=== PATIENT | male | born 1950 | race Caucasian/White ===

== ENCOUNTER 2025-01-21 09:42 | Outpatient (AMB) | payer MEDICARE, SELFPAY ==
--- OUTSIDE RECORDS SUMMARY | 2024-10-12 11:37 | XMS_ITS ---
Author Organization [facility] Address [facility] [place], [place] [address] Care Team Providers Care Tablet Tester Name Role Phone MANOJ DRISCOLL Primary Care Provider REASON FOR VISIT Simvastatin Encounters Encounter Location Date Provider Diagnosis [facility] [address] [place] [address] 10/12/2024 MANOJ DRISCOLL PLAN OF TREATMENT No Information
--- OUTSIDE RECORDS SUMMARY | 2024-10-15 04:00 | XMS_ITS ---
Author Organization [facility] Address [address] [place], [place] [phone] Care Team Providers Care Produce Field Merchandiser Name Role Phone AMERICO MANOJ Primary Care [...] 10/15/2024 Encounters Encounter Location Date Provider Diagnosis [facility] [address] [place] [address] 10/15/2024 MANOJ AMERICO Impaired fasting glucose R73.01 [...] neuralgia (ICD-10 - G50.0) He goes to [facility], new provider each time. Oxcarbazine [...] 2 meds. Trigeminal neuralgia He goes to [facility], new provider each time. Oxcarbazine [...]
--- OUTSIDE RECORDS SUMMARY | 2024-10-15 05:00 | XMS_ITS ---
Author Organization [facility] Address [facility] [place], [place] [id number] Care Team Providers Care Electron Gun Inspector Name Role Phone MANOJ DRISCOLL Primary Care Provider [phone] REASON FOR VISIT 40/ 6 months Encounters Encounter Location Date Provider Diagnosis [facility] [address] [place] [address] 10/15/2024 MANOJ DRISCOLL PLAN OF TREATMENT No Information
--- OUTSIDE RECORDS SUMMARY | 2024-12-10 10:50 | XMS_ITS ---
Author Organization [facility] Address [facility] [place], [place] [id number] Care Team Providers Care Bookie Name Role Phone MANOJ DRISCOLL Primary Care Provider Encounters Encounter Location Date Provider Diagnosis [facility] [address] [place] [address] 12/10/2024 MANOJ DRISCOLL PLAN OF TREATMENT No Information
--- OUTSIDE RECORDS SUMMARY | 2024-12-11 05:15 | XMS_ITS ---
Author Organization [facility] Address [address] [place], [place] [id number] Care Team Providers Care Book Author Name Role Phone MANOJ DRISCOLL Primary Care Provider REASON FOR VISIT Olmesartan rx MEDICATIONS Medication SIG (Take, Route, Frequency, Duration) Notes Start Date End Date Status Olmesartan Medoxomil 40 MG as directed O rally daily for 90 days Active Encounters Encounter Location Date Provider Diagnosis [facility] [address] [place] [address] 12/11/2024 MANOJ DRISCOLL Essential (primary) hypertension I10 ASSESSMENTS Encounter Date Diagnosis Assessment Notes Treatment Notes Treatment Clinical Notes Section Notes 12/11/2024 Essential (primary) hypertension (ICD-10 - I10) PLAN OF TREATMENT Medication Medication Name Sig Start Date Stop Date Notes Olmesartan Medoxomil 40 MG as directed O rally daily for 90 days
--- NOTE | 2025-01-21 09:45 | MHC.PC.OV ---
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 Allergies Seasonal Allergies Allergy (Verified 01/21/25 10:13) Runny Nose Medication List - Last Reconciled 01/21/25 by Martín Tidwell MD aspirin (Adult Aspirin Regimen) 81 mg PO DAILY chlorthalidone 25 mg PO DAILY fluticasone propionate 50 mcg/actuation (Allergy Relief (fluticasone)) 1 spray intranasal DAILY PRN gabapentin 300 mg PO BID latanoprost 0.005% 1 drp ophthalmic (eye) QPM olmesartan 40 mg PO DAILY oxcarbazepine 600 mg PO BID oxcarbazepine 300 mg PO DAILY phenytoin sodium extended (Dilantin) PO TID phenytoin sodium extended 100 mg PO TID simvastatin 40 mg PO BEDTIME Tobacco use date assessed: 01/21/25 Fall risk assessment: No Falls in past year (Neuropathy of his feet) Last assessed Fall Risk: 01/21/25 Dental Screening Dental Screen Date: 01/21/25 Did you have a dental visit in the last 12 months?: Yes Did you have a dental problem in the last 6 months where you did not have access to dental care?: No Was dental information given to patient?: Patient has dentist HPI 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 ?? Prior PCP:Sola Last office visit/CPE:?3 mos Acute issue(s):? Neuropathy & Falls bilateral hand soreness & weakness ?? PMHx:?HTN, Trigeminal Neuralgia Dr. Wyman, HLD, SurgHx:? None FHx:? Mom: Aneurysm SocHx: Nonsmoker, EtOH 1 drink a month. [facility] Medical History (Updated 01/21/25 @ 11:00 by Paulino Thompson) Trigeminal neuralgia Neuropathy Hyperlipidemia Hypertension Sinusitis Family History (Updated 01/21/25 @ 10:21 by Yesenia Weiss CMA) Father Congestive heart failure Social History (Updated 01/21/25 @ 10:21 by Yesenia Weiss CMA) Housing: House Alcohol intake: current Patient Tobacco Use Status: Never used Tobacco e-Cigarette/Vaping Use: Never Used Second Hand Smoke Exposure: No service: No Current occupational status: retired Current occupational exposures/hazards: No Cognitive needs: No Hearing needs: No Vision needs: No Questionnaire PHQ-9 Over the last 2 weeks, how often have you been bothered by any of the following problems? 1. Little interest or pleasure in doing things: not at all 2. Feeling down, depressed, or hopeless: not at all 3. Trouble falling or staying asleep, or sleeping too much: not at all 4. Feeling tired or having little energy: several days 5. Poor appetite or overeating: not at all 6. Feeling bad about yourself - or that you are a failure or have let yourself or your family down: not at all 7. Trouble concentrating on things, such as reading the newspaper or watching television: not at all 8. Moving or speaking so slowly that other people could have noticed. Or the opposite - being so fidgety or restless that you have been moving around a lot more than usual: not at all 9. Thoughts that you would be better off or of hurting yourself in some way: not at all Total score: 1 Depression Screening Interpretation: Negative Depression Screening Done: Yes 71405 - PHQ-9 Billing: Yes Source: Developed by Drs. Alvin Barr, Halley Bonds, Temo Evans and colleagues, with an educational cindy from [employer]. Thrive Questionnaire Date Thrive assessed: 01/21/25 I am a: Patient What is your living situation today?: I have a steady place to live Within the past 12 months, did the food you bought not last and you didn't have the money to get more?: Never true Within the past 12 months, did you worry whether your food would run out before you got money to buy more?: Never true Do you have trouble paying for medicines?: No Do you have trouble getting transportation to medical appointments?: No Do you have trouble paying your heating and electricity bill?: No Do you have trouble taking care of your child, family member or friend?: No Do you have trouble with day-to-day activities such as bathing, preparing meals, shopping, managing finances, etc.?: No Are you currently unemployed and looking for a job?: No Are you interested in more education?: No Please select the resources that you would like help with: None Currently or been in a relationship where the following occur: No concerns reported THRIVE Score: 0 AUDIT C Alcohol Use Questionnaire (AUDIT-C) 1. How often do you have a drink containing alcohol?: 2-4 times a month 2. How many drinks containing alcohol do you have on a typical day when you are drinking?: 1 or 2 3. How often do you have six or more drinks on one occasion?: Never Total Score: 2 MANSOOR-7 AMB Questionnaire MANSOOR-7 Date MANSOOR - 7 assessed: 01/21/25 Feeling nervous, anxious, or on edge: 1 = Several days Not being able to stop or control worryin = Several days Worrying too much about different things: 0 = Not at all Trouble relaxin = Several days Being so restless that it is hard to sit still: 0 = Not at all Becoming easily annoyed or irritable: 0 = Not at all Feeling afraid as if something awful might happen: 0 = Not at all Total MANSOOR-7 score (0-4 normal; 5-9 mild; 10-14 moderate; 15-21 severe): 3 Source: Developed by Drs. Alvin Barr, Halley Bonds, Temo Evans and colleagues, with an educational cindy from [employer]. MANSOOR-7 Assessment Billing MANSOOR-7 Assessment Tool: MANSOOR-7 Assessment 02026 Review of Systems Const Denies chills, Denies fatigue, Denies fever(s), Denies headache(s) and Denies weakness ENT Denies dizziness and Denies headache(s) Card Denies chest pain, Denies lightheadedness, Denies dyspnea and Denies other (Palpitations) Resp Denies cough, Denies dyspnea, Denies wheezing and Denies other ( shortness of breath) Musc Denies numbness and Denies tingling Neuro Denies dizziness, Denies headache(s), Denies numbness, Denies tingling, Denies paresthesias and Denies weakness Psych Denies anxiety and Denies depression Endo Denies fatigue Aller/Immun Denies wheezing Physical exam (Primary Care) Vital Signs: Last Vital Signs Temp 97.9 F 01/21/25 10:21 Pulse 95 01/21/25 10:21 Resp 15 01/21/25 10:21 BP 112/60 01/21/25 10:21 Pulse Ox 98 01/21/25 10:21 Oxygen Delivery Method Room Air 01/21/25 10:21 BMI result Body Mass Index 28.9 Tobacco/Smoking Status: Tobacco use Status Tobacco use date assessed 01/21/25 01/21/25 10:20 Patient Tobacco Use Status Never used Tobacco 01/21/25 10:21 e-Cigarette/Vaping Use Never Used 01/21/25 10:21 PHQ-9: PHQ-9 Score PHQ-9: Total score 1 01/21/25 10:20 Depression Screening Interpretation: Negative Thrive Assessment: Date of Thrive Assessment Date Thrive assessed 01/21/25 01/21/25 09:50 Currently or been in a relationship where the following occur: No concerns reported Const General: no acute distress and well developed Nutritional Appearance: well nourished Orientation/consciousness: patient oriented x3 HENMT Head: Yes normocephalic and Yes atraumatic Eyes General: appearance normal, both eyes and all related structures Pupils: Equal, round and reactive pupils present EOM: EOMs intact bilaterally Resp Effort & Inspection: normal respiratory effort Auscultation: clear to auscultation bilaterally Cardio Rate: regular rate Rhythm: regular rhythm Heart sounds: S1 normal heart sound present, S2 normal heart sound present, no gallops, no murmurs and no rubs Neuro General: patient oriented x3 and gait normal Cranial nerves: Yes Equal, round and reactive pupils present Psych Affect: normal affect Coding Level of Care Code New Pt Level 4 (59919) Diagnoses Trigeminal neuralgia G50.0 Hypertension I10 Hyperlipidemia E78.5 Falls R29.6 Neuropathy G62.9 Bilateral hand pain M79.641; M79.642 Weakness of both hands R29.898 Facial tic F95.9 Insomnia G47.00 Laboratory exam ordered as part of routine general medical examination Z00.00 Additional Codes MANSOOR-7 Assessment Billing - MANSOOR-7 Assessment Tool: MANSOOR-7 Assessment 56850 ([id number]) PHQ-9 - 93563 - PHQ-9 Billing: Yes ([id number]) Assessment & Plan Assessment & Plan (1) Trigeminal neuralgia: Code(s): G50.0 - Trigeminal neuralgia Category: Medical Plan: Patient takes oxcarbazepine and phenytoin He feels that the medications are well and symptoms are controlled. He does have some insomnia however and oxcarbazepine and phenytoin can be contributing to this. He has Benadryl for this with good affect Can continue this or we can discuss other medications subsequently. (2) Hypertension: Code(s): I10 - Essential (primary) hypertension Category: Medical Plan: Blood pressure is well controlled on olmesartan in chlorthalidone Continue current medication regimen Check labs (3) Hyperlipidemia: Code(s): E78.5 - Hyperlipidemia, unspecified Category: Medical Plan: He is on simvastatin Check lipids (4) Falls: Code(s): R29.6 - Repeated falls Category: Medical Plan: Neuropathy bilateral feet and has had several falls. More recently he is following less as he is focusing using railings and avoiding falls. We discussed using a cane today. Evaluating neuropathy-see below (5) Neuropathy: Code(s): G62.9 - Polyneuropathy, unspecified Category: Medical Plan: Neuropathy bilateral feet with positive microfilament test and toe tips and forefoot bilaterally. Checking labs including inflammatory markers and B12. Also thyroid levels. Advised using a cane Follow-up with podiatry Follow-up with Neurology (6) Bilateral hand pain: Code(s): M79.641 - Pain in right hand; M79.642 - Pain in left hand Category: Medical Plan: Bilateral hand pain, weakness and mild deformities at pip joints Likely osteoarthritis Check x-rays Checking inflammatory markers and rheumatoid factor (7) Weakness of both hands: Code(s): R29.898 - Other symptoms and signs involving the musculoskeletal system Category: Medical Plan: As above (8) Facial tic: Code(s): F95.9 - Tic disorder, unspecified Category: Medical Plan: Mild facial tic He is on medications such as oxcarbazepine and phenytoin, however his daughter notes that he has they should take preceding medications. (9) Insomnia: Code(s): G47.00 - Insomnia, unspecified Category: Medical Plan: Difficulty sleeping and this may be secondary to oxcarbazepine and then until in which insomnia He uses Benadryl as discussed above (10) Laboratory exam ordered as part of routine general medical examination: Code(s): Z00.00 - Encounter for general adult medical examination without abnormal findings Category: Medical Plan: Check labs Orders: Orders Complete Blood Count Auto Diff Today Z00.00 - Encounter for general adult medical examination without abnormal findings Comprehensive [place]. Panel Fast Today Z00.00 - Encounter for general adult medical examination without abnormal findings Lipid Panel Today Z00.00 - Encounter for general adult medical examination without abnormal findings TSH reflex Free T4 Today Z00.00 - Encounter for general adult medical examination without abnormal findings UA CC w/rflx Micro + Cult Today Z00.00 - Encounter for general adult medical examination without abnormal findings Vitamin B12 and Folate Today E53.8 - Deficiency of other specified B group vitamins Vitamin D 25-OH Total Today E55.9 - Vitamin D deficiency, unspecified Syphilis Screen Today G62.9 - Polyneuropathy, unspecified, Z11.3 - Encounter for screening for infections with a predominantly sexual mode of transmission Rheumatoid Factor Today M79.641 - Pain in right hand, M79.642 - Pain in left hand CRP High Sensitivity Today M79.641 - Pain in right hand, M79.642 - Pain in left hand XR hand LT min 3V Today M79.641 - Pain in right hand, M79.642 - Pain in left hand Prostate Specific Antigen Scr Today Z12.5 - Encounter for screening for malignant neoplasm of prostate Microalbumin, Random (w Creat) Today I10 - Essential (primary) hypertension Phenytoin Dilantin Today G50.0 - Trigeminal neuralgia Lyme IgG/IgM w/reflex to WB Today G62.9 - Polyneuropathy, unspecified ERIK Reflex Titer and Pattern Today M79.641 - Pain in right hand, M79.642 - Pain in left hand Erythrocyte Sedimentation Rate Today M79.641 - Pain in right hand, M79.642 - Pain in left hand XR hand RT min 3V Today M79.641 - Pain in right hand, M79.642 - Pain in left hand
[2025-01-21 10:21] VITALS: BP 112/60; PULSE 95; RESP 15; TEMP 36.6; O2SAT 98; BMI 28.9
--- OUTSIDE RECORDS SUMMARY | 2025-01-21 10:36 | XMS_ITS | Patient Health Record ---
Author Organization [facility] Address [facility] [place], [place] [id number] Care Team Providers Care Competency Evaluated Nurse Aide Name Role Phone MANOJ DRISCOLL Primary Care Provider [phone] [facility] Unavailable [phone] ALLERGIES No Known Allergies REASON FOR REFERRAL No Information MEDICATIONS Medication SIG (Take, Route, Frequency, Duration) Notes Start Date End Date Status Olmesartan Medoxomil 40 MG TAKE 1 TABLET BY MOUTH EVERY DAY DIRECTED for 90 Active Sleep Aid ? 2 CAPS. QHS OTC Active Chlorthalidone 25 MG TAKE 1 TABLET DAILY IN THE MORNING WITH FOOD for 90 Active OXcarbazepine 300 MG 1 tab(s) orally in the p.m. Active OXcarbazepine 600 MG 1 tab in a.m. and 1 tab in the p.m. orally daily Active Simvastatin 40 MG TAKE 1 TABLET AT BED TIME Orally Once a day for 90 days Active Phenytoin Sodium Extended 100 MG 3 cap(s) orally once a day (at bedtime) Active Dilantin 30 MG 1 cap(s) orally 3 ti mes daily Active Gabapentin 300 MG 1 cap(s) orally 2 ti mes a day Active IMMUNIZATIONS Vaccine Route Administration Date Status Comme nts FLUAD Quadrivalent Unknown 03/31/2021 Administered Influenza, Fluzone HD 65+ IM Intramuscular 03/29/2023 Admi nistered Pfizer COVID-19,mRNA, LNP-S, PF, 30mcg/0.3mL dose Unknown 07/15/2020 Administered Pfizer COVID-19,mRNA, LNP-S, PF, 30mcg/0.3mL dose Unknown 08/05/2020 Administered Pfizer COVID-19,mRNA, LNP-S, PF, 30mcg/0.3mL dose Unknown 03/31/2021 Administered Pneumococcal, PPV 23 IM Intramuscular 04/14/2021 Administe red Tdap (Adacel)-64,State Supplied Unknown 09/06/2006 Administered SOCIAL HISTORY Tobacco Use: Social History Observation [...] W/U Status Risk SNOMED Code Notes Problem Hypercholesterolemia NOS (272.4) Active confirmed Hypercholestero lemia (60358027) Problem Depressive disorder NEC (311) Active confirmed Depressive diso rder (25330193) Problem Essential (primary) hypertension (I10) Active confirmed 94226468 Problem Mixed hyperlipidemia (E78.2) Active confirmed 816923417 Problem Trigeminal neuralgia (G50.0) Active confirmed Trigeminal neur algia (14796563) Problem Polyneuropathy (G62.9) Active confirmed 76699672 VITAL SIGNS Blood pressure diastolic 66 mm Hg 10/15/2024 Height 62 in 10/15/2024 Blood pressure systolic 116 mm Hg 10/15/2024 Weight 164.8 lbs 10/15/2024 BMI 30.14 kg/m2 10/15/2024 Encounters Encounter Location Date Provider Diagnosis [facility] [address] [place] [address] 04/12/2024 NURSING [facility] [address] [place] [address] 04/12/2024 MANOJ DRISCOLL Impaired fasting glucose R73.01 ; Mixed hyperlipidemia E78.2 ; Essential (primary) hypertension I10 ; Trigeminal neuralgia G50.0 ; Encounter for general adult medical examination without abnormal findings Z00.00 and Polyneuropathy G62.9 [facility] [address] [facility] [place] [address] 09/05/2024 MANOJLETICIA CAMPOVERDENICOLAS [facility] [address] [place] [address], [place] [address] 10/12/2024 MANOJLETICIA CAMPOVERDENICOLAS [facility] [address] [place] [address], [place] [address] 10/15/2024 MANOJ DRISCOLL Impaired fasting glucose R73.01 ; Mixed hyperlipidemia E78.2 ; Essential (primary) hypertension I10 ; Trigeminal neuralgia G50.0 and Polyneuropathy G62.9 [facility] [address] [place] [address], [place] [address] 10/15/2024 MANOJLETICIA DRISCOLL [address] [place] [address] 12/10/2024 MANOJLETICIA FERNANDEZLIOR [address] [place] [address] 12/11/2024 MANOJ DRISCOLL Essential (primary) hypertension I10 ASSESSMENTS Encounter Date Diagnosis Assessment Notes Treatment Notes Treatment Clinical Notes Section Notes 12/11/2024 Essential (primary) hypertension (ICD-10 - I10) 10/15/2024 Impaired fasting glucose (ICD-10 - R73.01) His last hemoglobin A1c was stable at 6.2. He will go for repeat soon. 04/12/2024 Impaired fasting glucose (ICD-10 - R73.01) His hemoglobin A1c is stable at 6.2. This may have been an needed by his 10 pound weight loss which may have resulted from his exacerbation of trigeminal neuralgia. However, that is now gone and he will need to maintain his weight loss on his own. 10/15/2024 Mixed hyperlipidemia (ICD-10 - E78.2) He remains on simvastatin. He did not do his labs for today but will go soon. No xu;gias 10/15/2024 Essential (primary) hypertension (ICD-10 - I10) BP is good today. Continue same 2 meds. 04/12/2024 Mixed hyperlipidemia (ICD-10 - E78.2) LDL [...] Recent exacerbation in January. He goes to [facility], new provider each time. Oxcarbazine makes him imbalanced. He has fallen several times They are adjusting his dose (now 600mg AM + 900mg PM). Severe pain after eating or brushing teeth. Has been intermittent for >10 years. 10/15/2024 Trigeminal neuralgia (ICD-10 - G50.0) He goes to [facility], new provider each time. Oxcarbazine makes him imbalanced. No pain in months. Has been intermittent for >10 years. 04/12/2024 Encounter for general adult medical examination without abnormal findings (ICD-10 - Z00.00) 10/15/2024 Polyneuropathy (ICD-10 - G62.9) He had loss of sensation in his feet, many years. It is better now. No history of significant alcohol use. No obvious etiology. 04/12/2024 Polyneuropathy (ICD-10 - G62.9) He has loss of sensation in his feet, many years. He will discuss with his neurologist at the next appointment. B12, TSH were normal. No history of significant alcohol use. No obvious etiology. 04/12/2024 Other All HRA questions answered. Emphasized benefit of regular aerobic exercise/healthy diet. *See [facility]/preventive medicine Health Risk Assessment reviewed with patient [...] was published to portal. PLAN OF TREATMENT Future Test Test Name Order Date LIPID PROFILE 04/09/2021 LIPID PANEL 05/10/2023 TSH WITH REFLEX TO FT4 (ADULTS ONLY) CBC (COMPLETE BLOOD COUNT) WITH DIFF COMPREHENSIVE METABOLIC PANEL 05/10/2023 HEMOGLOBIN A1C 05/10/2023 VITAMIN B12 05/10/2023 IRON AND TIBC 05/11/2023 URIC ACID 05/11/2023 CBC With Differential/Platelet-[id number] Hgb A1c with eAG Estimation-[id number] 10/11 LP+Non-HDL Cholesterol-338401 10/11/2024 Comp. Metabolic Panel [id number] 2024 Insurance Providers Payer Name Payer Address Payer Phone Subscriber Number Group Number Insured Name Patient Relationship to Insured Coverage Start Date Coverage End Date [employer]IC[employer] [address] [place] [address] [id number] ANIRUDH BETANCOURT Self - patient is the insured 1 MEDICAL (GENERAL) HISTORY Medical History History ICD Code Insomnia trigeminal neuralgia hyperlipidemia pre-diabetes [facility]- Sheryl Betancourt () Surgical History Surgery Date(Month/Year) None
== END 2025-01-21 11:00 | disposition home or self-care (01) ==
PROVIDERS: PCP Family Medicine; Visit Provider Family Medicine
DX: G50.0 Trigeminal neuralgia (principal); I10 Essential (primary) hypertension; E78.5 Hyperlipidemia, unspecified; R29.6 Repeated falls; G62.9 Polyneuropathy, unspecified; M79.641 Pain in right hand; M79.642 Pain in left hand; R29.898 Other symptoms and signs involving the musculoskeletal system; F95.9 Tic disorder, unspecified; G47.00 Insomnia, unspecified; Z00.00 Encounter for general adult medical examination without abnormal findings

== ENCOUNTER → 2025-01-21 09:42 | Outpatient (BNVA) | payer MEDICARE, SELFPAY | PROVIDERS: PCP Family Medicine; Visit Provider Family Medicine | DX: Z00.00 Encounter for general adult medical examination without abnormal findings (principal); M79.642 Pain in left hand; M79.641 Pain in right hand; G62.9 Polyneuropathy, unspecified; I10 Essential (primary) hypertension; E78.5 Hyperlipidemia, unspecified; R29.6 Repeated falls; R29.898 Other symptoms and signs involving the musculoskeletal system; F95.9 Tic disorder, unspecified; G47.00 Insomnia, unspecified | CPT/HCPCS: 96127; 99202 ==

== ENCOUNTER 2025-02-01 08:06 | Outpatient (REF) | payer MEDICARE, SELFPAY ==
--- NOTE | ~2025-02-01 | XR_ITS ---
EXAMINATION: X-ray bilateral hands CLINICAL INFORMATION: Pain COMPARISON: None TECHNIQUE: Right hand 3 views. Left hand 3 views. FINDINGS: [Left hand : Osseous mineralization is decreased. No fracture, dislocation or suspicious bony lesion.. Moderate first CMC arthritis. Mild third DIP, second PIP joint arthritis.. No osseous erosion. No abnormal soft tissue calcification. Right hand: Osseous mineralization is decreased. No fracture, dislocation or suspicious osseous lesion.. Severe first CMC arthritis. Joint space loss of the second MCP, third DIP joint.. No osseous erosion. No abnormal soft tissue calcification. XR/XR Hand Bilat min 3v IMPRESSION: Left hand: Arthritis as above. Moderate first CMC arthritis. Right hand: Arthritis as above. Severe first CMC arthritis. Electronically signed by: Edmundo Lopez MD 02/01/2025 09:05 AM EDT
[2025-02-01 11:06] LABS: MANUAL DIFF FLAG NO
[2025-02-01 11:15] LABS: Hematocrit 41.1 % (42.0-52.0); Hemoglobin 14.2 g/dl (14.0-18.0); Imm Gran Abs Auto 0.01 X10*3/uL (0.00-0.03); Imm Gran Pct Auto 0.2 % (0.0-0.4); Lymphocytes Absolute Auto 1.2 X10*3/uL (1.2-4.9); Mean Corpuscular HGB Conc 34.5 g/dl (31.0-36.0); Mean Corpuscular Hemoglobin 29.7 pg (27.0-33.0); Mean Corpuscular Volume 86.0 fL (80.0-98.0); NRBC Abs Auto 0.000 X10*3/uL (0.0-0.012); NRBC Pct Auto 0.0 /100WBC (0.0-0.2); Platelet Count 266 X10*3/uL (160-400); Red Blood Count 4.78 X10*6/uL (4.60-5.80); White Blood Count 5.9 X10*3/uL (4.8-10.8)
[2025-02-01 11:18] LABS: Appearance Urine Clear; Glucose Urine UA Negative (Negative); PH 7.5 (5.0-9.0); Specific Gravity - Urine 1.020 (1.005-1.025); UMIC TRIGGER UACC YES
[2025-02-01 11:46] LABS: Alanine Aminotransferase 30 U/L (0-40); Albumin Level 4.4 g/dL (3.5-5.0); Alkaline Phosphatase 89 U/L (39-117); Anion Gap 11 (12-20); Aspartate Amino Transferase 33 U/L (5-37); Blood Urea Nitrogen 13 mg/dL (9-16); Calcium 8.8 mg/dL (8.4-10.2); Carbon Dioxide 26 mmol/L (22-29); Chloride 95 mmol/L (96-108); Cholesterol 154 mg/dL (<200); Estimated Glomerular Filt Rate > 60; HDL Cholesterol 56 mg/dL (>40); Potassium 3.7 mmol/L (3.3-5.1); Sodium 128 mmol/L (135-145); Total Protein 6.6 g/dL (6.5-8.0); Triglycerides 77 mg/dL (<150)
[2025-02-01 11:50] LABS: Microalbum/Creatinine Ratio Ur 8.0 ug/mg cr (<30)
[2025-02-01 12:22] LABS: Folate 7.4 ng/mL (> or = 4.0); Vitamin B12 587 pg/mL (200-900)
[2025-02-01 12:23] LABS: Syphilis Screen Nonreactive (Nonreactive)
[2025-02-02 10:38] LABS: Lyme Abs Screen <0.90 index
[2025-02-15 13:08] LABS: Anti Nuclear Antibody Pattern Nuclear, Nucleolar; Anti Nuclear Antibody Screen POSITIVE (NEGATIVE); Anti Nuclear Antibody Titer 1:80 titer
== END 2025-02-01 08:07 | disposition home or self-care (01) ==
LOC: HO.WFDLDS 08:06
PROVIDERS: PCP Family Medicine; Visit Provider Family Medicine
DX: Z00.00 Encounter for general adult medical examination without abnormal findings (principal); E55.9 Vitamin D deficiency, unspecified; M79.641 Pain in right hand; M79.642 Pain in left hand; I10 Essential (primary) hypertension; G50.0 Trigeminal neuralgia; E53.8 Deficiency of other specified B group vitamins; G62.9 Polyneuropathy, unspecified; Z12.5 Encounter for screening for malignant neoplasm of prostate; Z01.84 Encounter for antibody response examination
CPT/HCPCS: 36415; 73130; 80053; 80061; 80185; 81001; 82043; 82306; 82570; 82607; 82746; 84153; 84443; 85025; 85652; 86038; 86039; 86141; 86431; 86617; 86618; 86780

== ENCOUNTER → 2025-02-01 08:47 | Outpatient (BNV) | payer MEDICARE, SELFPAY | PROVIDERS: PCP Family Medicine; Visit Provider Radiology Diagnostic Ultrasound | DX: M18.0 Bilateral primary osteoarthritis of first carpometacarpal joints (principal) | CPT/HCPCS: 73130 ==

== ENCOUNTER 2025-02-25 09:16 | Outpatient (AMB) | payer MEDICARE, SELFPAY ==
--- OUTSIDE RECORDS SUMMARY | 2023-09-22 03:00 | XMS_ITS ---
Author Organization [facility] Address [address], [place] [id number] Care Team Providers Care Nematology Teacher Name Role Phone AMERICO MANOJ Primary Care Provider ALLERGIES No Known Allergies REASON FOR VISIT 2 mo f/u, pt needs refills on Olmesartan [facility] MEDICATIONS Medication SIG (Take, Route, Frequency, Duration) Notes Start Date End Date Status Simvastatin 40 MG tab orally at bedtime Active OXcarbazepine 600 MG 2 tab(s) orally daily Active OXcarbazepine 300 MG 3 tab(s) orally in the a.m. Active Olmesartan Medoxomil 40 MG as directed O rally daily for 90 days Active Chlorthalidone 25 MG 1 tab Orally in the morning with food Active Sleep Aid ? 2 CAPS. QHS OTC Active Phenytoin Sodium Extended 100 MG 3 cap(s) orally once a day (at bedtime) Active Gabapentin 300 MG 1 cap(s) orally 2 ti mes a day Active Dilantin 30 MG 1 cap(s) orally 3 ti mes daily Active SOCIAL HISTORY Tobacco Use: Social History Observation Description Date Details (start date - stop date) Never Smoker NA - NA Sex Assigned At : Social History Observation Description Sex Assigned At Unknown Smoking Question Answer Notes Are you a: never smoker VITAL SIGNS Height 62 in 09/22/2023 Weight 167.2 lbs 09/22/2023 Blood pressure systolic 132 mm Hg 09/22/19 24 Blood pressure diastolic 74 mm Hg 024 BMI 30.58 kg/m2 09/22/2023 Encounters Encounter Location Date Provider Diagnosis [facility] [address] [place] [address] 09/22/2023 MANOJ DRISCOLL Mixed hyperlipidemia E78.2 ; Impaired fasting glucose R73.01 ; Essential (primary) hypertension I10 and Trigeminal neuralgia G50.0 ASSESSMENTS Encounter Date Diagnosis Assessment Notes Treatment Notes Treatment Clinical Notes Section Notes 09/22/2023 Mixed hyperlipidemia (ICD-10 - E78.2) 09/22/2023 Impaired fasting glucose (ICD-10 - R73.01) Hemoglobin A1c generally runs 5.9-6. It is now up to 6.2. Discussed exercise, weight loss, avoiding simple carbs. 09/22/2023 Essential (primary) hypertension (ICD-10 - I10) OK. Home monitoring encouraged. refilled olmesartan. Serum sodium is 130. Discussed avoiding excessive water intake. Likely chlorthalidone is playing a role. Will continue to monitor. He will go to recheck that in 3 months. Lab orders transmitted. 09/22/2023 Trigeminal neuralgia (ICD-10 - G50.0) well controlled with meds now. He goes to [facility], new provider each time PLAN OF TREATMENT Medication Medication Name Sig Start Date Stop Date Notes Olmesartan Medoxomil 40 MG as directed O rally daily for 90 days Treatment Notes Assessment Notes Impaired fasting glucose Hemoglobin A1c generally runs 5.9-6. It is now up to 6.2. Discussed exercise, weight loss, avoiding simple carbs. Essential (primary) hypertension OK. Home monitoring encouraged. refilled olmesartan. Serum sodium is 130. Discussed avoiding excessive water intake. Likely chlorthalidone is playing a role. Will continue to monitor. He will go to recheck that in 3 months. Lab orders transmitted. Trigeminal neuralgia well controlled wit h meds now. He goes to [facility], new provider each time Next Appt Details Follow Up: OV+AWV after 03/29 ., Reason: Progress Notes * Examination Category Sub-Category Detail Notes Category Not es General Examination HEENT: EOMI bilaterally, PER RLA Neck: no lymphadenopathy, no thyromegaly, no carotid bruit, JVP flat Heart: RRR, no murmur, , no rmal S1S2 Lungs: clear to auscultatio n Extremities: normal ROM, no clubb ing , cyanosis, or edema. No objective findings on left thumb (he describes hand weakness there) Skin: normal, no rash, aidan ign appearing moles Neuro alert and oriented x 3, gait normal. Oral cavity: no lesions Back: normal ROM of spine, no evidence of scoliosis Lymphatics No supraclavicular n odes, No nodes in neck
--- OUTSIDE RECORDS SUMMARY | 2023-12-23 08:47 | XMS_ITS ---
Author Organization [facility] Address [address] [place], [place] [id number] Care Team Providers Care Contour Grinder Name Role Phone MANOJ DRISCOLL Primary Care Provider [phone] REASON FOR VISIT fax last AWV/CPX and last office notes Encounters Encounter Location Date Provider Diagnosis [facility] [address] [place] [address] 12/23/2023 MANOJ DRISCOLL PLAN OF TREATMENT No Information
--- OUTSIDE RECORDS SUMMARY | 2024-04-12 05:00 | XMS_ITS ---
Author Organization [facility] Address [address] [place], [place] [phone] Care Team Providers Care Automatic Lehr Operator Name Role Phone MANOJ DRISCOLL Primary Care Provider [phone] RADHA PRIETO [facility] [phone] REASON FOR VISIT 40/awv Encounters Encounter Location Date Provider Diagnosis [facility] [address] [place] [address] 04/12/2024 NURSING [facility] PLAN OF TREATMENT No Information
--- OUTSIDE RECORDS SUMMARY | 2024-04-12 05:30 | XMS_ITS ---
Author Organization [facility] Address [address], [place] [id number] Care Team Providers Care Trucking Supervisor Name Role Phone AMERICO MANOJ Primary Care Provider [phone] ALLERGIES No Known Allergies REASON FOR VISIT [...] Trigeminal neuralgia (G50.0) Active confirmed Trigeminal neuralgia (60513444) Problem Polyneuropathy (G62.9) Active confirmed [id number] VITAL SIGNS Height 62 in 04/12/2024 Weight 161.2 lbs 04/12/2024 Blood pressure systolic 128 mm Hg 04/12/20 24 Blood pressure diastolic 66 mm Hg 024 BMI 29.48 kg/m2 04/12/2024 Encounters Encounter Location Date Provider Diagnosis [facility] [address] [place] [address] 04/12/2024 MANOJ DRISCOLL Impaired fasting glucose R73.01 [...] Recent exacerbation in January. He goes to [facility], new provider each time. Oxcarbazine [...] generalized fatigue. 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 He gets cramps in his calves occasionally [...] Recent exacerbation in January. He goes to [facility], new provider each time. Oxcarbazine [...] Test Test Name Order Date CBC With Differential/Platelet-[id number] Hgb A1c with eAG Estimation-[id number] 10/11 LP+Non-HDL Cholesterol-[id number] 10/11/2024 Comp. Metabolic Panel [id number] 2024 Next Appt Details Follow Up: 6 Months. print r ex. Flu+[id number] today, Reason: Progress Notes * Examination Category [...]
--- OUTSIDE RECORDS SUMMARY | 2024-09-05 03:50 | XMS_ITS ---
Author Organization [facility] Address [address] [place], [place] [address] Care Team Providers Care Galvanizer Name Role Phone MANOJ DRISCOLL Primary Care Provider [phone] REASON FOR VISIT MedRecReqTsf Encounters Encounter Location Date Provider Diagnosis [facility] [address] [place] [address] 09/05/2024 MANOJ DRISCOLL PLAN OF TREATMENT No Information
--- OUTSIDE RECORDS SUMMARY | 2024-10-12 10:37 | XMS_ITS ---
Author Organization [facility] Address [address] [place], [place] [id number] Care Team Providers Care Clinical Marketing Manager Name Role Phone MANOJ DRISCOLL Primary Care Provider [phone] REASON FOR VISIT Simvastatin Encounters Encounter Location Date Provider Diagnosis [facility] [address] [place] [address] 10/12/2024 MANOJ DRISCOLL PLAN OF TREATMENT No Information
--- OUTSIDE RECORDS SUMMARY | 2024-10-15 03:00 | XMS_ITS ---
Author Organization [facility] Address [address] [place], [place] [id number] Care Team Providers Care Head Tennis Coach Name Role Phone AMERICO MANOJ Primary Care Provider ALLERGIES No Known Allergies REASON FOR VISIT Medication Refill MEDICATIONS Medication SIG (Take, Route, Frequency, Duration) Notes Start Date End Date Status Olmesartan Medoxomil 40 MG TAKE 1 TABLET BY MOUTH EVERY DAY DIRECTED. for 90 Active Chlorthalidone 25 MG TAKE 1 TABLET DAILY IN THE MORNING WITH FOOD 90 for 90 Active Sleep Aid ? 2 CAPS. QHS OTC Active Olmesartan Medoxomil 40 MG as directed O rally daily for 90 days Active Phenytoin Sodium Extended 100 MG 3 cap(s) orally once a day (at bedtime) Active OXcarbazepine 300 MG 1 tab(s) orally in the p.m. Active OXcarbazepine 600 MG 1 tab in a.m. and 1 tab in the p.m. orally daily Active Simvastatin 40 MG TAKE 1 TABLET AT BED TIME Orally Once a day for 90 days Active Dilantin 30 MG 1 cap(s) orally 3 ti mes daily Active Gabapentin 300 MG 1 cap(s) orally 2 ti mes a day Active SOCIAL HISTORY Tobacco Use: Social History [...] Never (0 points) Points 1 Interpretation Negative VITAL SIGNS Height 62 in 10/15/2024 Weight 164.8 lbs 10/15/2024 Blood pressure systolic 116 mm Hg 10/16/19 25 Blood pressure diastolic 66 mm Hg 025 BMI 30.14 kg/m2 10/15/2024 Encounters Encounter Location Date Provider Diagnosis [facility] [address] [place] [address] 10/15/2024 MANOJ AMERICO Impaired fasting glucose R73.01 ; Mixed hyperlipidemia E78.2 ; Essential (primary) hypertension I10 ; Trigeminal neuralgia G50.0 and Polyneuropathy G62.9 ASSESSMENTS Encounter Date Diagnosis Assessment Notes Treatment Notes Treatment Clinical Notes Section Notes 10/15/2024 Impaired fasting glucose (ICD-10 - R73.01) His last hemoglobin A1c was stable at 6.2. He will go for repeat soon. 10/15/2024 Mixed hyperlipidemia (ICD-10 - E78.2) He remains on simvastatin. He did not do his labs for today but will go soon. No xu;gias 10/15/2024 Essential (primary) hypertension (ICD-10 - I10) BP is good today. Continue same 2 meds. 10/15/2024 Trigeminal neuralgia (ICD-10 - G50.0) He goes to [facility], new provider each time. Oxcarbazine makes him imbalanced. No pain in months. Has been intermittent for >10 years. 10/15/2024 Polyneuropathy (ICD-10 - G62.9) He had loss of sensation in his feet, many years. It is better now. No history of significant alcohol use. No obvious etiology. PLAN OF TREATMENT Medication Medication Name Sig Start Date Stop Date Notes Olmesartan Medoxomil 40 MG as directed O rally daily for 90 days Simvastatin 40 MG TAKE 1 TABLET AT BED TIME Orally Once a day for 90 days Treatment Notes Assessment Notes Impaired fasting glucose His last hemogl obin A1c was stable at 6.2. He will go for repeat soon. Mixed hyperlipidemia He remains on simva statin. He did not do his labs for today but will go soon. No xu;gias Essential (primary) hypertension BP is g ood today. Continue same 2 meds. Trigeminal neuralgia He goes to [facility], new provider each time. Oxcarbazine makes him imbalanced. No pain in months. Has been intermittent for >10 years. Polyneuropathy He had loss of sensa tion in his feet, many years. It is better now. No history of significant alcohol use. No obvious etiology. Next Appt Details Follow Up: 6 Months OV+AWV, Reason: Progress Notes * Examination Category Sub-Category [...]
--- OUTSIDE RECORDS SUMMARY | 2024-10-15 04:00 | XMS_ITS ---
Author Organization [facility] Address [address] [place], [place] [phone] Care Team Providers Care Java J2Ee Architect Name Role Phone MANOJ DRISCOLL Primary Care Provider [phone] REASON FOR VISIT 40/ 6 months Encounters Encounter Location Date Provider Diagnosis [facility] [address] [place] [address] 10/15/2024 MANOJ DRISCOLL PLAN OF TREATMENT No Information
--- OUTSIDE RECORDS SUMMARY | 2024-12-10 09:50 | XMS_ITS ---
Author Organization [facility] Address [address] [place], [place] [id number] Care Team Providers Care Production Internship Name Role Phone MANOJ DRISCOLL Primary Care Provider Encounters Encounter Location Date Provider Diagnosis [facility] [address] [facility] [place] [address] 12/10/2024 MANOJ DRISCOLL PLAN OF TREATMENT No Information
--- OUTSIDE RECORDS SUMMARY | 2024-12-11 04:15 | XMS_ITS ---
Author Organization [facility] Address [address] [place], [place] [id number] Care Team Providers Care Gizzard Skin Remover Name Role Phone MANOJ DRISCOLL Primary Care Provider REASON FOR VISIT Olmesartan rx MEDICATIONS Medication SIG (Take, Route, Frequency, Duration) Notes Start Date End Date Status Olmesartan Medoxomil 40 MG as directed O rally daily for 90 days Active Encounters Encounter Location Date Provider Diagnosis [facility] [address] [place] [address] 12/11/2024 MANOJ DRISCOLL Essential (primary) hypertension I10 ASSESSMENTS Encounter Date Diagnosis Assessment Notes Treatment Notes Treatment Clinical Notes Section Notes 12/11/2024 Essential (primary) hypertension (ICD-10 - I10) PLAN OF TREATMENT Medication Medication Name Sig Start Date Stop Date Notes Olmesartan Medoxomil 40 MG as directed O rally daily for 90 days
--- NOTE | 2025-02-25 09:30 | A.OFFPC_ITS ---
Vital Signs 02/25/25 09:33 Height 5 ft 3 in Weight 160 lb 6 oz BMI 28.4 BP 110/60 Blood Pressure Location Rt brachial Position Sitting Respiration 16 Pulse 73 Pulse Source Pulse Oximeter Temp 98.2 F Temp Source Oral Pulse Oximetry (%) 96 Oxygen Delivery Method Room Air Intake Visit Reasons: Labs, Bi-Lat Hand and Neuropathy Intake Note: patient is scheduled to review labs and discuss x-ray results along with neuropathy labs have been completed and x-ray is resulted. 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 Required: No Allergies Seasonal Allergies Allergy (Verified 02/25/25 09:32) Runny Nose Medication List - Last Reconciled 02/25/25 by Martín Tidwell MD aspirin (Adult Aspirin Regimen) 81 mg PO DAILY chlorthalidone 25 mg PO DAILY fluticasone propionate 50 mcg/actuation (Allergy Relief (fluticasone)) 1 spray intranasal DAILY PRN gabapentin 300 mg PO BID latanoprost 0.005% 1 drp ophthalmic (eye) QPM olmesartan 40 mg PO DAILY oxcarbazepine 600 mg PO BID oxcarbazepine 300 mg PO DAILY phenytoin sodium extended (Dilantin) PO TID phenytoin sodium extended 100 mg PO TID simvastatin 40 mg PO BEDTIME Tobacco use date assessed: 01/21/25 Dental Screening Dental Screen Date: 01/21/25 HPI Labs, Bi-Lat Hand and Neuropathy HPI Details 74 y/o male presents to f/u bilateral [place] pain, neuropathy, labs. Labs drawn 02/01/25. Reviewed labs with pt. Sodium level 128 mmol/L. Elevated fasting glucose of 127. Triglycerides 77. TC 154. LDL 83. He is on simvastatin 40mg. Ongoing bilateral hand pain. Reports bilateral hamstring discomfort. A1c today 5.9%. HPI Comments History of Present Illness Details Documentation assistance for Martín Tidwell MD, was provided by Paulino Thompson,? It Systems Administrator on 02/25/2025 at 10:06 AM GIUSEPPE. Braxton, Dr. Tidwell, have read, observed, and verified documentation. ?? [facility] Medical History (Updated 02/25/25 @ 10:06 by Paulino Thompson) Trigeminal neuralgia Neuropathy Hyperlipidemia Hypertension Sinusitis Family History (Updated 01/21/25 @ 10:21 by Yesenia Weiss [facility]) Father Congestive heart failure Social History (Updated 01/21/25 @ 10:21 by Yesenia Weiss CMA) Housing: House Alcohol intake: current Patient Tobacco Use Status: Never used Tobacco e-Cigarette/Vaping Use: Never Used Second Hand Smoke Exposure: No service: No Current occupational status: retired Current occupational exposures/hazards: No Cognitive needs: No Hearing needs: No Vision needs: No Questionnaire Thrive Questionnaire Date Thrive assessed: 01/21/25 MANSOOR-7 AMB Questionnaire MANSOOR-7 Date MANSOOR - 7 assessed: 01/21/25 Source: Developed by Drs. Alvin Barr, Halley Bonds, Temo Evans and colleagues, with an educational cindy from [employer]. Review of Systems Const Denies chills, Denies fatigue, Denies fever(s), Denies headache(s) and Denies weakness ENT Denies dizziness and Denies headache(s) Card Denies dyspnea Resp Denies cough, Denies dyspnea, Denies wheezing and Denies other (shortness of breath) Musc Denies numbness and Denies tingling Neuro Denies dizziness, Denies headache(s), Denies numbness, Denies tingling and Denies weakness Psych Denies anxiety and Denies depression Endo Denies fatigue Aller/Immun Denies wheezing Physical exam (Primary Care) Vital Signs: Last Vital Signs Temp 98.2 F 02/25/25 09:33 Pulse 73 02/25/25 09:33 Resp 16 02/25/25 09:33 BP 110/60 02/25/25 09:33 Pulse Ox 96 02/25/25 09:33 Oxygen Delivery Method Room Air 02/25/25 09:33 BMI result Body Mass Index 28.4 Tobacco/Smoking Status: Tobacco use Status Tobacco use date assessed 01/21/25 02/25/25 09:30 Patient Tobacco Use Status Never used Tobacco 02/25/25 09:30 e-Cigarette/Vaping Use Never Used 02/25/25 09:30 Thrive Assessment: Date of Thrive Assessment Date Thrive assessed 01/21/25 02/25/25 09:30 Const General: well developed; No acute distress Nutritional Appearance: well nourished Orientation/consciousness: patient oriented x3 HENMT Head: Yes normocephalic and Yes atraumatic Eyes General: appearance normal, both eyes and all related structures Pupils: Equal, round and reactive pupils present EOM: EOMs intact bilaterally Resp Effort & Inspection: normal respiratory effort Neuro General: patient oriented x3 and gait normal Cranial nerves: Yes Equal, round and reactive pupils present Psych Affect: normal affect Coding Level of Care Code Est Pt Level 4 (62425) Diagnoses Bilateral hand pain M79.641; M79.642 Hyperlipidemia E78.5 Hamstring muscle strain S76.319A Thigh pain M79.659 Pre-diabetes R73.03 Assessment & Plan Assessment & Plan (1) Bilateral hand pain: Code(s): M79.641 - Pain in right hand; M79.642 - Pain in left hand Category: Medical Plan: X-ray show arthritis, right worse than left. CRP is elevated His other inflammatory markers and ERIK are nonspecific. Referring him to Rheumatology May also benefit from occupational therapy and physical therapy. (2) Hyperlipidemia: Code(s): E78.5 - Hyperlipidemia, unspecified Category: Medical Plan: On simvastatin Lipids are controlled. Continue current medication (3) Hamstring muscle strain: Code(s): S76.319A - Strain of muscle, fascia and tendon of the posterior muscle group at thigh level, unspecified thigh, initial encounter Plan: Bilateral hamstring discomfort. Start physical therapy (4) Thigh pain: Code(s): M79.659 - Pain in unspecified thigh Plan: As above (5) Pre-diabetes: Code(s): R73.03 - Prediabetes Category: Medical Plan: A1c 5.9%. Pre diabetes range Encouraged diet lower in sugars and starches Orders: Orders OT Evaluation and Treatment Today M25.529 - Pain in unspecified elbow, M79.641 - Pain in right hand, M79.642 - Pain in left hand PT Evaluation and Treatment Today M79.659 - Pain in unspecified thigh, S76.319A - Strain of muscle, fascia and tendon of the posterior muscle group at thigh level, unspecified thigh, initial encounter Referrals Rheumatology Referral M79.641 - Pain in right hand, M79.642 - Pain in left hand Medications: New cholecalciferol (vitamin D3) 50 mcg PO DAILY 90 caps 3RF 90 days
[2025-02-25 09:33] VITALS: BP 110/60; PULSE 73; RESP 16; TEMP 36.8; O2SAT 96; BMI 28.4
--- OUTSIDE RECORDS SUMMARY | 2025-02-25 10:17 | XMS_ITS | Patient Health Record ---
Author Organization [facility] Address [address] [place], [place] [id number] Care Team Providers Care Grinder Operator Tool Name Role Phone MANOJ DRISCOLL Primary Care Provider [facility], NUR[facility] Unavailable [phone] ALLERGIES No Known Allergies REASON FOR REFERRAL [...] Hypercholesterolemia NOS (272.4) Active confirmed Hypercholestero lemia (91275063) Problem Depressive disorder NEC (311) Active confirmed Depressive diso rder (43317565) Problem Essential (primary) hypertension (I10) Active confirmed 44100868 Problem Mixed hyperlipidemia (E78.2) Active confirmed 051200079 Problem Trigeminal neuralgia (G50.0) Active confirmed Trigeminal neur algia (86700270) Problem Polyneuropathy (G62.9) Active confirmed 76921673 VITAL SIGNS Blood pressure diastolic 66 mm Hg 10/15/2024 Height 62 in 10/15/2024 Blood pressure systolic 116 mm Hg 10/15/2024 Weight 164.8 lbs 10/15/2024 BMI 30.14 kg/m2 10/15/2024 Encounters Encounter Location Date Provider Diagnosis [facility] [address] [place] [address] 04/12/2024 NURSING [facility] [address] [place] [address] 04/12/2024 MANOJ DRISCOLL Impaired fasting glucose R73.01 ; Mixed hyperlipidemia E78.2 ; Essential (primary) hypertension I10 ; Trigeminal neuralgia G50.0 ; Encounter for general adult medical examination without abnormal findings Z00.00 and Polyneuropathy G62.9 [facility] [address] [facility] [address] 09/05/2024 MANOJLETICIA CAMPOVERDENICOLAS [facility] [address] [place] [address], [place] [address] 10/12/2024 MANOJLETICIA CAMPOVERDENICOLAS [facility] [address] [place] [address], [place] [address] 10/15/2024 MANOJ DRISCOLL Impaired fasting glucose R73.01 ; Mixed hyperlipidemia E78.2 ; Essential (primary) hypertension I10 ; Trigeminal neuralgia G50.0 and Polyneuropathy G62.9 [facility] [address] [place] [address], [place] [address] 10/15/2024 MANOJLETICIA DRISCOLL [address] [place] [address] 12/10/2024 MANOJLETICIA FERNANDEZLIOR [address] [place] [address] 12/11/2024 MANOJ DRISCOLL Essential (primary) hypertension I10 [...] Recent exacerbation in January. He goes to [facility], new provider each time. Oxcarbazine makes him imbalanced. He has fallen several times They are adjusting his dose (now 600mg AM + 900mg PM). Severe pain after eating or brushing teeth. Has been intermittent for >10 years. 10/15/2024 Trigeminal neuralgia (ICD-10 - G50.0) He goes to [facility], new provider each time. Oxcarbazine [...] benefit of regular aerobic exercise/healthy diet. *See [facility]/preventive medicine Health Risk Assessment reviewed with patient [...] TIBC 05/11/2023 URIC ACID 05/11/2023 CBC With Differential/Platelet-720237 Hgb A1c with eAG Estimation-[id number] 10/11 LP+Non-HDL Cholesterol-302922 10/11/2024 Comp. Metabolic Panel [id number] 2024 Insurance Providers Payer Name Payer Address Payer Phone Subscriber Number Group Number Insured Name Patient Relationship to Insured Coverage Start Date Coverage End Date MEDICARE [employer] [address] [place] [address] [id number] ANIRUDH BETANCOURT Self - patient is the insured 1 MEDICAL (GENERAL) HISTORY Medical History History ICD Code Insomnia trigeminal neuralgia hyperlipidemia pre-diabetes [facility]- Sheryl Betancourt () Surgical History Surgery Date(Month/Year) None
== END 2025-02-25 10:14 | disposition home or self-care (01) ==
LOC: HO.HMCFM 09:16
PROVIDERS: PCP Family Medicine; Visit Provider Family Medicine
DX: M79.641 Pain in right hand (principal); M79.642 Pain in left hand; E78.5 Hyperlipidemia, unspecified; S76.319A Strain of muscle, fascia and tendon of the posterior muscle group at thigh level, unspecified thigh, initial encounter; M79.659 Pain in unspecified thigh; R73.03 Prediabetes

== ENCOUNTER → 2025-02-25 09:16 | Outpatient (BNVA) | payer MEDICARE, SELFPAY | PROVIDERS: PCP Family Medicine; Visit Provider Family Medicine | DX: M79.641 Pain in right hand (principal); M79.642 Pain in left hand; E78.5 Hyperlipidemia, unspecified; S76.311D Strain of muscle, fascia and tendon of the posterior muscle group at thigh level, right thigh, subsequent encounter; S76.312D Strain of muscle, fascia and tendon of the posterior muscle group at thigh level, left thigh, subsequent encounter; R73.03 Prediabetes | CPT/HCPCS: 83036; 99212 ==

== ENCOUNTER 2025-03-20 09:42 | Outpatient (REF) | payer MEDICARE, SELFPAY ==
--- OUTSIDE RECORDS SUMMARY | 2023-09-22 03:00 | XMS_ITS ---
Author Organization [facility] Address [address] [place] [address] Care Team Providers Care Calculating Machine Mechanic Name Role Phone AMERICO MANOJ Primary Care [...] 09/22/2023 Encounters Encounter Location Date Provider Diagnosis [facility] [address] [place] [address] 09/22/2023 MANOJ DRISCOLL Mixed hyperlipidemia E78.2 ; [...] controlled with meds now. He goes to [facility], new provider each time PLAN OF [...] wit h meds now. He goes to [facility], new provider each time Next Appt [...]
--- OUTSIDE RECORDS SUMMARY | 2023-12-23 08:47 | XMS_ITS ---
Author Organization [facility] Address [address] [place] [address] Care Team Providers Care Obstetrical Tech Name Role Phone MANOJ DRISCOLL Primary Care Provider REASON FOR VISIT fax last AWV/CPX and last office notes Encounters Encounter Location Date Provider Diagnosis [facility] [address] [place] [address] 12/23/2023 MANOJ DRISCOLL PLAN OF TREATMENT No Information
--- OUTSIDE RECORDS SUMMARY | 2024-04-12 05:00 | XMS_ITS ---
Author Organization [facility] Address [address] [place] [address] Care Team Providers Care Configuration Management Specialist Name Role Phone MANOJ DRISCOLL Primary Care Provider RADHA PRIETO [facility] [phone] REASON FOR VISIT 40/awv Encounters Encounter Location Date Provider Diagnosis [facility] [address] [place] [address] 04/12/2024 NURSING [place] PLAN OF TREATMENT No Information
--- OUTSIDE RECORDS SUMMARY | 2024-04-12 05:30 | XMS_ITS ---
Author Organization [facility] Address [address] [place] [address] Care Team Providers Care Purchasing Administrator Name Role Phone REBECCACAMILANICOLASMANOJ Primary Care Provider ALLERGIES No Known Allergies REASON FOR VISIT AWV, AWV was cancelled by Nursing MEDICATIONS Medication SIG (Take, Route, Frequency, Duration) Notes Start Date End Date Status Olmesartan Medoxomil 40 MG as directed O rally daily for 90 days Active Phenytoin Sodium Extended 100 MG 3 cap(s) orally once a day (at bedtime) Active Sleep Aid ? 2 CAPS. QHS OTC Active Dilantin 30 MG 1 cap(s) orally 3 ti mes daily Active Gabapentin 300 MG 1 cap(s) orally 2 ti mes a day Active Chlorthalidone 25 MG 1 tab Orally in the morning with food Active OXcarbazepine 600 MG 1 tab in a.m. and 1 tab in the p.m. orally daily Active OXcarbazepine 300 MG 1 tab(s) orally in the p.m. Active Simvastatin 40 MG TAKE 1 TABLET AT BED TIME for 90 Active SOCIAL HISTORY Tobacco Use: Social History Observation Description Date Details (start date - stop date) Never Smoker NA - NA Sex Assigned At : Social History Observation Description Sex Assigned At Unknown Smoking Question Answer Notes Are you a: never smoker Alcohol Screen Question Answer Notes Did you have a drink contain ing alcohol in the past year? Yes How often did you have a dri nk containing alcohol in the past year? Monthly or less (1 point) How many drinks did you have on a tpical day when you were drinking in the past year? 1 or 2 (0 points) How often did you have six o r more drinks on one occassion in the past year? Never (0 points) Points 1 Interpretation Negative PROBLEMS Problem Type ICD Code Onset Dates Problem Status W/U Status Risk SNOMED Code Notes Problem Trigeminal neuralgia (G50.0) Active confirmed Trigeminal neuralgia (93735728) Problem Polyneuropathy (G62.9) Active confirmed 23644560 VITAL SIGNS Height 62 in 04/12/2024 Weight 161.2 lbs 04/12/2024 Blood pressure systolic 128 mm Hg 04/12/20 24 Blood pressure diastolic 66 mm Hg 024 BMI 29.48 kg/m2 04/12/2024 Encounters Encounter Location Date Provider Diagnosis [facility] [address] [place] [address] 04/12/2024 MANOJ DRISCOLL Impaired fasting glucose R73.01 ; Mixed hyperlipidemia E78.2 ; Essential (primary) hypertension I10 ; Trigeminal neuralgia G50.0 ; Encounter for general adult medical examination without abnormal findings Z00.00 and Polyneuropathy G62.9 ASSESSMENTS Encounter Date Diagnosis Assessment Notes Treatment Notes Treatment Clinical Notes Section Notes 04/12/2024 Impaired fasting glucose (ICD-10 - R73.01) His hemoglobin A1c is stable at 6.2. This may have been an needed by his 10 pound weight loss which may have resulted from his exacerbation of trigeminal neuralgia. However, that is now gone and he will need to maintain his weight loss on his own. 04/12/2024 Mixed hyperlipidemia (ICD-10 - E78.2) LDL was 117 on simvastatin. Continue same. He has some generalized fatigue. 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 He gets cramps in his calves occasionally which sound suggestive of restless leg syndrome. This is very similar to what he described on his April 27, 2023 appointment. Iron level was normal on recent labs. However, muscle cramps are rare. If they return, he will let me know. 04/12/2024 Essential (primary) hypertension (ICD-10 - I10) BP is good today. Continue same 2 meds. 04/12/2024 Trigeminal neuralgia (ICD-10 - G50.0) Recent exacerbation in January. He goes to [facility], new provider each time. Oxcarbazine makes him imbalanced. He has fallen several times They are adjusting his dose (now 600mg AM + 900mg PM). Severe pain after eating or brushing teeth. Has been intermittent for >10 years. 04/12/2024 Encounter for general adult medical examination without abnormal findings (ICD-10 - Z00.00) 04/12/2024 Polyneuropathy (ICD-10 - G62.9) He has loss of sensation in his feet, many years. He will discuss with his neurologist at the next appointment. B12, TSH were normal. No history of significant alcohol use. No obvious etiology. 04/12/2024 Other All HRA questions answered. Emphasized benefit of regular aerobic exercise/healthy diet. *See HPI/preventive medicine Health Risk Assessment reviewed with patient and scanned into chart. Well Visit Over 65 care instructions reviewed Advanced directives: Healthcare Proxy has been formally established and identidied as Daughter Josette Opiate use in the past year NONE THC, other receational substances used in the past year NONE Alcohol use: 1/month Memory: no problem noted wears seatbelts: always exercise: NONE (understands he needs to) Well Visit, Over 65: Care Instructions material was published to portal. PLAN OF TREATMENT Medication Medication Name Sig Start Date Stop Date Notes Olmesartan Medoxomil 40 MG as directed O rally daily for 90 days Treatment Notes Assessment Notes Impaired fasting glucose His hemoglobin A1c is stable at 6.2. This may have been an needed by his 10 pound weight loss which may have resulted from his exacerbation of trigeminal neuralgia. However, that is now gone and he will need to maintain his weight loss on his own. Mixed hyperlipidemia LDL was 117 on simvastatin. Continue same. He has some generalized fatigue. 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 He gets cramps in his calves occasionally which sound suggestive of restless leg syndrome. This is very similar to what he described on his April 27, 2023 appointment. Iron level was normal on recent labs. However, muscle cramps are rare. If they return, he will let me know. Essential (primary) hypertension BP is g ood today. Continue same 2 meds. Trigeminal neuralgia Recent exacerbation in January. He goes to [facility], new provider each time. Oxcarbazine makes him imbalanced. He has fallen several times They are adjusting his dose (now 600mg AM + 900mg PM). Severe pain after eating or brushing teeth. Has been intermittent for >10 years. Polyneuropathy He has loss of sensa tion in his feet, many years. He will discuss with his neurologist at the next appointment. B12, TSH were normal. No history of significant alcohol use. No obvious etiology. Other All HRA questions answered. Emphasized benefit of regular aerobic exercise/healthy diet. *See HPI/preventive medicine Health Risk Assessment reviewed with patient and scanned into chart. Well Visit Over 65 care instructions reviewed Advanced directives: Healthcare Proxy has been formally established and identidied as Daughter Josette Opiate use in the past year NONE THC, other receational substances used in the past year NONE Alcohol use: 1/month Memory: no problem noted wears seatbelts: always exercise: NONE (understands he needs to) Well Visit, Over 65: Care Instructions material was published to portal. Future Test Test Name Order Date CBC With Differential/[id number] Hgb A1c with eAG Estimation-[id number] 10/11 LP+Non-HDL Cholesterol-[id number] 10/11/2024 Comp. Metabolic Panel [id number] 2024 Next Appt Details Follow Up: 6 Months. print r ex. Flu+[id number] today, Reason: Progress Notes * Examination Category Sub-Category Detail Notes Category Not es General Examination HEENT: EOMI Neck: no lymphadenopathy, no thyromegaly, no carotid bruit, JVP flat Heart: RRR, no murmur, , no rmal S1S2 Lungs: clear to auscultatio n Extremities: normal ROM, no clubb ing , cyanosis, or edema. General Appearance well built and ronny shed, no apparent distress Skin: normal, no rash, aidan ign appearing moles Neuro alert and oriented x 3, gait normal. Back: normal ROM of spine, no evidence of scoliosis Lymphatics No supraclavicular n odes, No nodes in neck History and Physical Notes * HPI (History of Present Illness) Category Sub-Category Detail Notes Category Not es General annual wellness exam HRA form re viewed with patient Depression Screening PHQ-2 (2015 Edition) Little interest or pleasure in doing things?: Not at all Feeling down, depressed, or hopeless?: N ot at all Total Score: 0
--- OUTSIDE RECORDS SUMMARY | 2024-09-05 03:50 | XMS_ITS ---
Author Organization [facility] Address [address] [place] [address] Care Team Providers Care Project Manager/Team Coach Name Role Phone AMNOJ DRISCOLL Primary Care Provider [phone] REASON FOR VISIT MedRecReqTsf Encounters Encounter Location Date Provider Diagnosis [facility] [address] [place] [facility] [place] [address] 09/05/2024 MANOJ DRISCOLL PLAN OF TREATMENT No Information
--- OUTSIDE RECORDS SUMMARY | 2024-10-12 10:37 | XMS_ITS ---
Author Organization [facility] Address [address] [place] [address] Care Team Providers Care Lab Tester Name Role Phone MANOJ DRISCOLL Primary Care Provider [phone] REASON FOR VISIT Simvastatin Encounters Encounter Location Date Provider Diagnosis [facility] [address] [place] [address] 10/12/2024 MANOJ DRISCOLL PLAN OF TREATMENT No Information
--- OUTSIDE RECORDS SUMMARY | 2024-10-15 03:00 | XMS_ITS ---
Author Organization [facility] Address [address] [place] [address] Care Team Providers Care Barge Engineer Name Role Phone AMERICO MANOJ Primary Care [...] 10/15/2024 Encounters Encounter Location Date Provider Diagnosis [facility] [address] [place] [address] 10/15/2024 MANOJ AMERICO Impaired fasting glucose R73.01 [...] neuralgia (ICD-10 - G50.0) He goes to [facility], new provider each time. Oxcarbazine [...] 2 meds. Trigeminal neuralgia He goes to [facility], new provider each time. Oxcarbazine [...]
--- OUTSIDE RECORDS SUMMARY | 2024-12-10 09:50 | XMS_ITS ---
Author Organization [facility] Address [address] [place] [address] Care Team Providers Care Records Management Director Name Role Phone MANOJ DRISCOLL Primary Care Provider [phone] Encounters Encounter Location Date Provider Diagnosis [facility] [address] [place] [address] 12/10/2024 MANOJ DRISCOLL PLAN OF TREATMENT No Information
--- OUTSIDE RECORDS SUMMARY | 2024-12-11 04:15 | XMS_ITS ---
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 Name Role Phone MANOJ DRISCOLL Primary Care Provider REASON FOR VISIT Olmesartan rx MEDICATIONS Medication SIG (Take, Route, Frequency, Duration) Notes Start Date End Date Status Olmesartan Medoxomil 40 MG as directed O rally daily for 90 days Active Encounters Encounter Location Date Provider Diagnosis [facility] [address] [place] [address] 12/11/2024 MANOJ DRISCOLL Essential (primary) hypertension I10 ASSESSMENTS Encounter Date Diagnosis Assessment Notes Treatment Notes Treatment Clinical Notes Section Notes 12/11/2024 Essential (primary) hypertension (ICD-10 - I10) PLAN OF TREATMENT Medication Medication Name Sig Start Date Stop Date Notes Olmesartan Medoxomil 40 MG as directed O rally daily for 90 days
--- OUTSIDE RECORDS SUMMARY | 2025-03-20 11:05 | XMS_ITS | Patient Health Record ---
Author Organization [facility] Address [address] [place] [address] Care Team Providers Care Patient Consumer Marketer Name Role Phone MANOJ DRISCOLL Primary [facility] Provider [facility] Unavailable [phone] ALLERGIES No Known Allergies REASON FOR REFERRAL [...] Vaccine Route Administration Date Status Comme nts Tdap (Adacel)11-64,State Supplied Unknown 09/06/2006 Administered Pneumococcal, PPV 23 IM Intramuscular 04/14/2021 Administe red Pfizer COVID-19,mRNA, LNP-S, PF, 30mcg/0.3mL dose Unknown 07/15/2020 Administered Pfizer COVID-19,mRNA, LNP-S, PF, 30mcg/0.3mL dose Unknown 08/05/2020 Administered Pfizer COVID-19,mRNA, LNP-S, PF, 30mcg/0.3mL dose Unknown 03/31/2021 Administered Influenza, Fluzone HD 65+ IM Intramuscular 03/29/2023 Admi nistered FLUAD Quadrivalent Unknown 03/31/2021 Administered SOCIAL HISTORY Tobacco Use: Social History [...] Hypercholesterolemia NOS (272.4) Active confirmed Hypercholestero lemia (21874054) Problem Depressive disorder NEC (311) Active confirmed Depressive diso rder (09565125) Problem Essential (primary) hypertension (I10) Active confirmed 07235346 Problem Mixed hyperlipidemia (E78.2) Active confirmed 360512932 Problem Trigeminal neuralgia (G50.0) Active confirmed Trigeminal neur algia (19676639) Problem Polyneuropathy (G62.9) Active confirmed 40408244 VITAL SIGNS Blood pressure diastolic 66 mm Hg 10/15/2024 Height 62 in 10/15/2024 Blood pressure systolic 116 mm Hg 10/15/2024 Weight 164.8 lbs 10/15/2024 BMI 30.14 kg/m2 10/15/2024 Encounters Encounter Location Date Provider Diagnosis [facility] [address] [place] [address] 04/12/2024 NURSING [facility] [address] [place] [address] 04/12/2024 MANOJ DRISCOLL Impaired fasting glucose R73.01 ; Mixed hyperlipidemia E78.2 ; Essential (primary) hypertension I10 ; Trigeminal neuralgia G50.0 ; Encounter for general adult medical examination without abnormal findings Z00.00 and Polyneuropathy G62.9 [facility] [address] [facility] [place] [address] 09/05/2024 MANOJLETICIA DRISCOLL [facility] [address] [place] [address] 10/12/2024 MANOJLETICIA CAMPOVERDENICOLAS [facility] [address] [place] [address], [place] [address] 10/15/2024 MANOJ DRISCOLL Impaired fasting glucose R73.01 ; Mixed hyperlipidemia E78.2 ; Essential (primary) hypertension I10 ; Trigeminal neuralgia G50.0 and Polyneuropathy G62.9 [facility] [address] [place] [address], [place] [address] 10/15/2024 MANOJLETICIA DRISCOLL [address] [place] [address] 12/10/2024 MANOJLETICIA CAMPOVERDENICOLAS [address] [place] [address] 12/11/2024 MANOJ DRISCOLL Essential (primary) hypertension I10 [...] Recent exacerbation in January. He goes to [facility], new [...] benefit of regular aerobic exercise/healthy diet. *See [facility]/preventive medicine Health Risk Assessment reviewed with patient [...] TIBC 05/11/2023 URIC ACID 05/11/2023 CBC With Differential/Platelet-080956 Hgb A1c with eAG Estimation-990205 10/11 LP+Non-HDL Cholesterol-415654 10/11/2024 Comp. Metabolic Panel [id number] 2024 Insurance Providers Payer Name Payer Address Payer Phone Subscriber Number Group Number Insured Name Patient Relationship to Insured Coverage Start Date Coverage End Date MEDICARE [employer] [address] [facility] [place] [address] [id number] ANIRUDH BETANCOURT Self - patient is the insured 1 MEDICAL (GENERAL) HISTORY Medical History History ICD Code Insomnia trigeminal neuralgia hyperlipidemia pre-diabetes [facility]- Sheryl Betancourt () Surgical History Surgery Date(Month/Year) None
[2025-03-20 11:25] LABS: MANUAL DIFF FLAG NO
[2025-03-20 11:30] LABS: Hematocrit 42.3 % (42.0-52.0); Hemoglobin 14.4 g/dl (14.0-18.0); Imm Gran Abs Auto 0.02 X10*3/uL (0.00-0.03); Imm Gran Pct Auto 0.3 % (0.0-0.4); Lymphocytes Absolute Auto 1.4 X10*3/uL (1.2-4.9); Mean Corpuscular HGB Conc 34.0 g/dl (31.0-36.0); Mean Corpuscular Hemoglobin 30.2 pg (27.0-33.0); Mean Corpuscular Volume 88.7 fL (80.0-98.0); NRBC Abs Auto 0.000 X10*3/uL (0.0-0.012); NRBC Pct Auto 0.0 /100WBC (0.0-0.2); Platelet Count 249 X10*3/uL (160-400); Red Blood Count 4.77 X10*6/uL (4.60-5.80); White Blood Count 6.1 X10*3/uL (4.8-10.8)
[2025-03-20 12:23] LABS: Alanine Aminotransferase 31 U/L (0-40); Albumin Level 4.3 g/dL (3.5-5.0); Alkaline Phosphatase 93 U/L (39-117); Anion Gap 10 (12-20); Aspartate Amino Transferase 26 U/L (5-37); Blood Urea Nitrogen 25 mg/dL (9-16); Calcium 8.9 mg/dL (8.4-10.2); Carbon Dioxide 27 mmol/L (22-29); Chloride 107 mmol/L (96-108); Estimated Glomerular Filt Rate > 60; Potassium 3.9 mmol/L (3.3-5.1); Sodium 140 mmol/L (135-145); Total Protein 6.6 g/dL (6.5-8.0)
== END 2025-03-20 09:43 | disposition home or self-care (01) ==
LOC: HO.WFDLDS 09:42
PROVIDERS: Visit Provider Family Medicine
DX: Z00.00 Encounter for general adult medical examination without abnormal findings (principal); M79.641 Pain in right hand; M79.642 Pain in left hand; E55.9 Vitamin D deficiency, unspecified
CPT/HCPCS: 36415; 80053; 82306; 85025

== ENCOUNTER 2025-04-01 10:00 | Outpatient (RCR) | payer MEDICARE, SELFPAY ==
--- NOTE | 2025-03-11 11:57 | MHC.OT.EP ---
[facility] Office [address] [phone] F: [phone] F: [phone] Occupational Therapy Plan of Care Patient Name: Martín Morocho Date of Evaluation: 03/11/25 Diagnosis: B/L Hand OA Pain Location: B/L hands at CMC sore Left elbow, tender to palpate over medial elbow Pain Score: 3 Pain Scale Used: Aggravating Factors: Twisting, gripping, opening containers Alleviating Factors: Nothing used/tried Assessment: 74 yo male referred to OT w/ B/L hand arthritis, x-ray shows severe OA in right and moderate in left, also visible through adduction deformities B/L'ly. He has mild pain at rest, but more pain with forceful use and difficulty opening jars, pill bottles and containers. He has used some adaptive equipment to ease strain, but he will benefit from cont'd therapy to address tightness, functional weakness, joint protection and activity management. Frequency and Duration: The patient will be seen 2/xwk for 3 weeks Short Term Goals: Ind w/ use of heat and cold for comfort Good follow through w/ activity modification and joint protection Pt to report ease w/ med management using adaptive tops and/or pill boxes Ind w/ CMC stabilization exercises Electrical Engineer Mep Goals: Same as above Treatment Plan: Therapeutic Exercise Therapeutic Activity Home Exercise Program Splinting Patient Education ADL Training Paraffin MHP Cold Packs Joint Mobilization Soft Tissue Mobilization Kinesiotaping Electronically Signed By: Luanne Maddox, OTR/L CHT Please Sign and return to therapist. Thank you once again for your referral.
--- NOTE | 2025-04-01 11:31 | MHC.OT.DC ---
[facility] Office [address] [facility] [address] [facility] [phone] F: [phone] F: [phone] Occupational Therapy Discharge Note Patient Name: Martín Morocho Provider: Dr Martín Tidwell Diagnosis: B/L Hand OA Date of Surgery: Date of Evaluation: 03/11/25 Date of Discharge: 04/01/25 Treatments to Date: 4 Cancellations to Date: No Shows to Date: Discharge Status: Achieved Goals Improved Function Independent with HEP Discharge Summary: Martín was referred to OT w/ B/L hand pain due to OA. He has B/L thumb CMC arthritic deformity, right worse than left. We have completed brief course of OT and progressed through exercises, pain management, soft tissue massage and general joint protection and activity modification. He reports decreased pain overall and ease w/ daily activities, including modifications for opening containers, but also overall increased strength for use of hands. He is Ind w/ home program and has started PT for leg pain. Electronically Signed By: KEEGAN Layton/L CHT Reviewed/agree with student documentation: Yes Therapist: Please Sign and return to therapist, thank you for your referral.
== END 2025-04-01 11:32 | disposition home or self-care (01) ==
LOC: HO.OT 10:00
PROVIDERS: PCP Family Medicine; Visit Provider Family Medicine
DX: M79.641 Pain in right hand (principal); M79.642 Pain in left hand; M25.522 Pain in left elbow
CPT/HCPCS: 97110; 97140; 97165

== ENCOUNTER 2025-04-24 07:43 | Outpatient (AMB) | payer MEDICARE, SELFPAY ==
--- OUTSIDE RECORDS SUMMARY | 2025-04-24 07:47 | XMS_ITS | Data Portability ---
Author Organization [place] - [facility], Allergy Address [address] [place] [address] Care Team Providers Care Binman Name Role Phone JOCELYN DRISCOLL Primary Care Provider Assessment Encounter Date Assessment Date Assessment LastModified by Organization Details LastModified Time 02/14/2024 02/14/2024 Patient with congestion and poor sense of smell returns for CT sinus results but also would like to discuss his balance and have his ears cleaned. Daughter would like to talk about a dry cough he has had for some time now. Physical exam reveals cerumen impaction bilaterally, which was cleared today in routine fashion. The images and report of CT sinus was reviewed with patient and daughter demonstrating chronic mucosal thickening in the right maxillary and bilateral ethmoidal sinuses, with trace thickening in the left frontal sinus and small mucus retention cysts in the left maxillary sinus. We discussed risks and benefits of antibiotic therapy, including risk of GI upset and diarrhea. Patient elected antibiotic therapy. Recommend daily sinus irrigation in distilled saline. Discussed some of these symptoms are consistent with allergic rhinitis. Patient may ultimately benefit best from an oral and/or nasal antihistamine and potentially allergy testing with an eye toward immunotherapy. For the balance, we reviewed that imbalance when ambulating is not consistent with inner ear pathology and is likely primarily mediated by his lower extremity neuropathy. Recommend he discuss with his neurologist, PCP, and multimedia author. There are other causes of imbalance such as cardiac or metabolic issues that can be best addressed by other providers. Reviewed indications to return to this office for re-evaluation of balance. Discussed that patient can return for work up of the cough. He declined to schedule that at this time and states he will call if he desires to proceed. [email or web address] Not available 02/14/2024 13:39:39 08/22/2024 08/22/2024 74yo male presents for routine cerumen debridement. Cerumen impaction removed bilaterally with suction, which patient tolerated well. Hearing returned to baseline. Otologic exam demonstrated TMs are intact with well-aerated middle ear spaces. Recommend 6-month follow-up for cerumen debridement, sooner with issues. [email or web address] Not available 08/22/2024 10:05:50 02/07/2025 02/07/2025 74yo male presents for routine cerumen debridement. Cerumen impaction removed bilaterally with suction, which patient tolerated well. Hearing returned to baseline after procedure. Otologic exam demonstrated TMs are intact with well-aerated middle ear spaces. Chronic rhinitis is well-managed with intranasal flonase, and we discussed a trial of saline irrigations to optimize management. He is not interested in allergy testing. Recommend 6-month follow-up for cerumen debridement, sooner with issues. [email or web address] Not available 02/07/2025 13:13:37 Plan of Treatment Reminders Order Date Submit Date Provider Last Modified By Organization Details Last Modified Time Details Appointments Establish ed 15 2025 10:45A M LISSET MONTGOMERY PA-C Not available Not available Not available Lab None recorded. Referral None recorded. Procedures None recorded. Surgeries None recorded. Imaging None recorded. Medication Orders amoxicill in 875 mg-potass ium clavulana te 125 mg tablet 2023 025 [facility] #[id number], [address] [place], [address], 08/22/2024 09:50:31 Patient TargetsNo targets recorded. Patient InstructionsNo instructions recorded. Reason for Referral None Reported. Problems Name Problem SNOMED Code Status Onset Date Resolution Date Notes Provider Name and Address Organization Details Recorded Time Impacted cerumen of bilateral ears 22222144252 35769 Active 2019 Impacted cerumen, bilateral ; Note: Date Diagnosed : 11/06/2019 9:42 AM (H61.23) LISSET MONTGOMERY PA-C [address] [place] [address],[place] [address], [place], [address] , [facility] - [facility] 5 10:05:53 Nasal congestio n 58425907 Active 2022 Nasal congestio n; Note: Date Diagnosed : 3 10:00 AM (R09.81) Not Available [facility] 4 03:15:05 Allergic rhinitis 63088884 Active 2022 Other allergic rhinitis; Note: Date Diagnosed : 3 10:00 AM (J30.89) Not Available [facility] 4 03:15:05 Chronic ethmoidal sinusitis 79451845 Active 2023 LISSET MONTGOMERY PA-C [address] [facility],[place] [address], [place], [address] , [place] - [facility] 4 13:02:52 Chronic right maxillary sinusitis 71940742961 513983 Active 2023 Eli Ketchen null, [place] - [facility] 4 13:19:06 Impairmen t of balance 496105509 Active 2023 Eli Ketchen null, [place] - [facility] 4 13:37:57 Chronic cough 19052668 Active 2023 Eli Lizandrochen null, [place] - [facility] 4 13:38:10 Chronic rhinitis 61119592 Active 2024 LISSET MONTGOMERY PA-C [address] [facility],[place] [address], [place], [address] , [place] - [facility] 5 13:13:25 Problem Notes None recorded. Procedures Surgical History Date Name Laterality Status Provider Name and Address Organization Details Recorded Time 5 Cerumen removal without microscope bilat completed LISSET MONTGOMERY PA-C [address] [facility],[address], [address], [place] - [facility] 02/06/2025 21:39:21 5 Cerumen removal without microscope bilat completed LISSET MONTGOMERY [facility]C [address] [facility] [place] [address], [place], [address], [place] - [facility] 08/22/2024 10:04:55 Cerumen removal without microscope bilat completed Eli Mccray [place] - [facility] 02/14/2024 13:22:18 Imaging Results None recorded. Procedure Notes None recorded. Medical Equipment None Reported. Allergies No known drug allergies Medications Name Sig Start Date Stop Date Status Note LastModified by Organization Details LastModified Time latanopro st 0.005 % eye drops INSTILL 1 DROP INTO BOTH EYES DAILY AT BEDTIME active Not Available Not Available No t Available meloxicam 15 mg tablet TAKE 1 TABLET BY MOUTH EVERY DAY WITH FOOD active Not Available Not Available No t Available oxcarbaze pine 300 mg tablet TAKE 1 TABLET BY MOUTH TWICE A DAY WITH 600MG TAB FOR TOTAL DOSE OF 900MG active Not Available Not Available No t Available phenytoin sodium extended 100 mg capsule TAKE 1 CAPSULE BY MOUTH THREE TIMES DAILY TOTAL DOSE IS 130 MG 3 TIMES DAILY active Not Available Not Available No t Available chlorthal idone 25 mg tablet TAKE 1 TABLET DAILY IN THE MORNING WITH FOOD active Not Available Not Available No t Available simvastat in 40 mg tablet TAKE 1 TABLET BY MOUTH EVERYDAY AT BEDTIME active Not Available Not Available No t Available gabapenti n 300 mg capsule TAKE 1 CAPSULE BY MOUTH TWICE A DAY active Not Available Not Available No t Available oxcarbaze pine 600 mg tablet PLEASE SEE ATTACHED FOR DETAILED DIRECTIO NS active Not Available Not Available No t Available fluticaso ne propionat e 50 mcg/actua tion nasal spray,[facility] 2019 active Medicati on ID: [id number] D uration Value: 90 Brand Name: fluticas one propiona te Send Method: E-Prescr ibed Sub s Allowed: subs [place] Medic ationGen ericName : fluticas one propiona te Not Available Not Available Not Available amoxicill in 875 mg-potass ium clavulana te 125 mg tablet TAKE 1 TABLET EVERY 12 HOURS BY MOUTH WITH MEAL(S) FOR 21 DAYS. 08/22 completed Not Available Not Available Not Available olmesarta n 40 mg tablet TAKE 1 TABLET BY MOUTH EVERY DAY DIRECTED active Not Available Not Available No t Available GaviLyte- G 236 gram-22.7 4 gram-6.74 gram-5.86 gram oral solution TAKE 8 OUNCE BY MOUTH DIRECTED DRINK A GLASS EVERY 10-15 MINUTES 08/22 completed Not Available Not Available Not Available Dilantin 30 mg capsule TAKE 1 CAPSULE BY MOUTH THREE TIMES DAILY active Not Available Not Available No t Available Vitals Date Recorded Body height Body mass index (BMI) Body weight Provider Name and Address Organization Details Last Updated DateTime 08/22/2024 160.02 cm 28.3 kg/m2 10585.78 g Tatianna Viviane [place] - [facility] 08/22/2024 09:48:52 Date Recorded Body height Provider Name an d Address Organization Details Last Updated DateTime 02/07/2025 160.02 cm HÉCTOR TAIBraxton [place] - [facility] 02/07/2025 10:54:02 Social History None recorded. Functional Status None recorded. Mental Status None recorded. Family History Nothing Reported. Medical History Condition Response High Cholesterol Y Past Encounters Encounter ID Performer Location Encounter Start Date Encounter Closed Date Diagnosis/Indication Diagnosis SNOMED-CT Code Diagnosis ICD10 Code Diagnosis IMO Codes Diagnosis Note [id number] ELI MCCRAY PA-C [facility] [address] [address] 02/14/2024 12:28:58 02/14/2024 13:28:57 Chronic ethmoidal sinusitis 77854443 J32.2 Chronic ri ght maxillary sinusitis 7966516701 6657576 J32.0 Impacted c erumen of bilateral ears 2746804983 905203 H61.23 Impairment of balance 38 5005117 R26.89 Chronic cough 52940266 R 05.3 [id number] LISSET MONTGOMERY PA-C [facility] [address] [address] 08/22/2024 09:42:00 08/22/2024 10:05:27 Impacted cerumen of bilateral ears 8590842719 178290 H61.23 984507 [id number] LISSET MONTGOMERY PA-C [facility] [address] [address] 02/07/2025 10:43:49 02/07/2025 11:25:10 Impacted cerumen of bilateral ears 9438400729 833328 H61.23 116727 Chronic rhinitis 2263081 6 J31.0 2545 Health Concerns Section Related Observation LastModified by Organization Detai ls LastModified Time None Recorded Concern Status LastModified by Organization Details LastModified Time None Recorded Advance Directives Directive None Recorded Payers Insurance Date Sequence Insurance Name Policy Number Policy Terry Covered Member ID Terry Member ID Guarantor Name 02/04/2025 1 MEDICARE B-[place]: [facility] [employer] Martín Morocho [id number] Martín Morocho Notes Date Note Type Note Provider Name and Address Organization Details Recorded Time 02/14/2024 text/html ROS as noted in the HPI 73-year-old male presents with daughter for revaluation of sinuses and would also like to have his ears cleaned and discuss his balance. His daughter would like to discuss a long standing dry cough. He endorses clear rhinorrhea, nasal congestion, and poor sense of smell, and denies facial pressure in sinus distribution and purulent nasal discharge. He takes fluticasone nasal spray, has been taking for a long time. No oral antihistamine. Just went to [place] and was less symptomatic when there but symptoms are back since returning to the area. CT sinus without contrast 11/28/2023 at [facility] demonstrated scattered areas of mucosal thickening throughout the paranasal sinuses. Inferior right maxillary sinus mucous retention cyst. Partial obstruction of the bilateral infundibulum and bilateral frontal ethmoidal recesses. C-shaped deviation of the anterior nasal septum with 3 mm bony spur abutting the inferior left nasal turbinate. Patient reports he has had intermittent imbalance, worse in the past 3-4 months. History of neuropathy in the fet per his multimedia author. There is no vertigo but feels unsteady on his feet. Only present when ambulating. Not immediately upon rising. Has had several falls. There is no associated hearing change, tinnitus, aural pressure, vision change, loss of visual field, presyncope, weakness, numbness, paralysis, headache, chest pain, nor heart palpitations with these episodes. NABOR GONG MD [address] [place] [address], [address], [facility] - [facility] 02/14/2024 16:39:40 08/22/2024 text/html ROS as noted in the HPI 74yo male presents for evaluation of the ears. Reports bilateral aural fullness, left worse than right. Denies ear pain, drainage, or hearing changes otherwise. CITLALY GUERRA MD [address] [facility],[address], [address], [facility] - [facility] 08/22/2024 18:02:49 02/07/2025 text/html ROS as noted in the [facility] 74yo male presents for cerumen removal. Reports bilateral aural fullness, left worse than right. Denies ear pain, drainage, or hearing changes otherwise. Dano Ordaz, [address] [facility],[place] [address], [place], [address], [facility] - [facility] 02/08/2025 10:49:01
--- OUTSIDE RECORDS SUMMARY | 2025-04-24 07:47 | XMS_ITS | Continuity of Care Document ---
Author Organization [place] - [facility], [facility] Address [address] [place] [address] Care Team Providers Care Bread Baker Name Role Phone JOCELYN DRISCOLL Primary Care Provider Assessment Encounter Date Assessment Date Assessment LastModified by Organization Details LastModified Time 02/07/2025 02/07/2025 74yo male presents for routine [...] None recorded. Imaging None recorded. Medication Orders None recorded. Patient TargetsNo targets recorded. Patient InstructionsNo instructions recorded. Reason for Referral None Reported. Problems Name Problem SNOMED Code Status Onset Date Resolution Date Notes Provider Name and Address Organization Details Recorded Time Impacted cerumen of bilateral ears 72365019017 68218 Active 2019 Impacted cerumen, bilateral ; Note: Date Diagnosed : 11/06/2019 9:42 AM (H61.23) LISSET MONTGOMERY PA-C [address] [place], [address] , [place] - [facility] [place] 5 10:05:53 Nasal congestio n 69880209 Active 2022 Nasal congestio n; Note: Date Diagnosed : 3 10:00 AM (R09.81) Not Available [facility] 4 03:15:05 Allergic rhinitis 24208641 Active 2022 Other allergic rhinitis; Note: Date Diagnosed : 3 10:00 AM (J30.89) Not Available [facility] 4 03:15:05 Chronic ethmoidal sinusitis 21145788 Active 2023 LISSET MONTGOMERY PA-C [address] [facility],[place] [address], [facility] [place], [address] , [place] - [facility] [place] [facility] [place] 4 13:02:52 Chronic right maxillary sinusitis 52607022669 195027 Active 2023 Eli Pedro null, [place] - [facility] [place] 4 13:19:06 Impairmen t of balance 741504507 Active 2023 Eli Ketchen null, [place] - [facility] [place] 4 13:37:57 Chronic cough 79889686 Active 2023 Eli Ketchen null, [place] - [facility] [place] [facility] 4 13:38:10 Chronic rhinitis 78641204 Active 2024 LISSET MONTGOMERY PA-C [address] [place] [address],[place] [address], [facility] [place], [address] , [place] - [facility] 5 13:13:25 Problem Notes None recorded. Procedures Surgical History Date Name Laterality Status Provider Name and Address Organization Details Recorded Time 5 Cerumen removal without microscope bilat completed LISSET MONTGOMERY PA-C [address] [facility],[place] [address], [place], [address], [place] - [facility] [place] [facility] [place] 02/06/2025 21:39:21 5 Cerumen removal without microscope bilat completed LISSET MONTGOMERY PA-C [address] [facility] [place], [address], [place] - [facility] 08/22/2024 10:04:55 Cerumen removal without microscope bilat completed Eli Vasquez [place] - [facility] 02/14/2024 13:22:18 Imaging Results None recorded. Procedure [...] ne propionat e 50 mcg/actua tion nasal spray,[facility] 2019 active Medicati on ID: [id number] D uration Value: 90 Brand Name: fluticas [...] t Available Vitals Date Recorded Body height Provider Name an d Address Organization Details Last Updated DateTime 02/07/2025 160.02 cm HÉCTOR COLIN [place] - [facility] 02/07/2025 10:54:02 Social History None recorded. Functional Status None recorded. Mental Status None recorded. Family History Nothing Reported. Medical History Condition Response High Cholesterol Y Past Encounters Encounter ID Performer Location Encounter Start Date Encounter Closed Date Diagnosis/Indication Diagnosis SNOMED-CT Code Diagnosis ICD10 Code Diagnosis IMO Codes Diagnosis Note [id number] LISSET MONTGOMERY PA-C [facility] [address] [address] 02/07/2025 10:43:49 02/07/2025 11:25:10 Impacted cerumen of bilateral ears 5939754359 857096 H61.23 395216 Chronic rhinitis 7405044 6 J31.0 2545 Health Concerns Section Related Observation LastModified by Organization Detai ls LastModified Time None Recorded Concern Status LastModified by Organization Details LastModified Time None Recorded Payers Encounter Date Sequence Insurance Name Policy Number Policy Terry Covered Member ID Terry Member ID Guarantor Name 02/07/2025 1 MEDICARE [place]: [facility] Martín Morocho [id number] Martín Morocho Notes Date Note Type Note Provider Name and Address Organization Details Recorded Time 02/07/2025 text/html ROS as noted in the HPI 74yo male presents for cerumen removal. Reports bilateral aural fullness, left worse than right. Denies ear pain, drainage, or hearing changes otherwise. Dano Ordaz, [address] [facility],[place] [address], [place], [address], [place] - [facility] 02/08/2025 10:49:01
--- OUTSIDE RECORDS SUMMARY | 2025-04-24 07:47 | XMS_ITS | Patient Health Record ---
Author Organization [facility] Address [address] [place] [address] Care Team Providers Care Gasoline Power Shovel Operator Name Role Phone MANOJ DRISCOLL [facility] Provider [facility] Unavailable [phone] Allergies No Known Allergies Reason For Referral No Information Medications Medication SIG (Take, Route, Frequency, Duration) Notes Start Date End Date Status Olmesartan Medoxomil 40 MG Tablet TAKE 1 TABLET BY MOUTH EVERY DAY DIRECTED; Duration: 90 Active Sleep Aid ? 2 CAPS. QHS OTC Active Chlorthalidone 25 MG Tablet TAKE 1 TABLE T DAILY IN THE MORNING WITH FOOD; Duration: 90 Active OXcarbazepine 300 MG Tablet 1 tab(s) ora lly in the p.m. Active OXcarbazepine 600 MG Tablet 1 tab in a.m . and 1 tab in the p.m. orally daily Active Simvastatin 40 MG Tablet TAKE 1 TABLET A T BEDTIME Orally Once a day; Duration: 90 days Active Phenytoin Sodium Extended 100 MG Capsule 3 cap(s) orally once a day (at bedtime) Active Dilantin 30 MG Capsule 1 cap(s) orally 3 times daily Active Gabapentin 300 MG Capsule 1 cap(s) orall y 2 times a day Active Immunizations Vaccine Route Administration Date Status Comme nts FLUAD Quadrivalent Unknown 03/31/2021 Administered Influenza, Fluzone HD 65+ IM Intramuscular 03/29/2023 Admi nistered Pfizer COVID-19,mRNA, LNP-S, PF, 30mcg/0.3mL dose Unknown 07/15/2020 Administered Pfizer COVID-19,mRNA, LNP-S, PF, 30mcg/0.3mL dose Unknown 08/05/2020 Administered Pfizer COVID-19,mRNA, LNP-S, PF, 30mcg/0.3mL dose Unknown 03/31/2021 Administered Pneumococcal, PPV 23 IM Intramuscular 04/14/2021 Administe red Tdap (Adacel)11-64,State Supplied Unknown 09/06/2006 Administered Social History Tobacco Use: Social History Observation Description Date Details (start date - stop date) Never Smoker NA - NA Social History Drug/Alcohol: Social Info Question Answer Notes Alcohol Screen Did you have a drink containing alcohol in the past year? Yes How often did you have a drink containing alcohol in the past year? Monthly or less (1 point) How many drinks did you have on a tpical day when you were drinking in the past year? 1 or 2 (0 points) How often did you have six or more drinks on one occassion in the past year? 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 [employer] exposure: no alcohol use: yes occasionally drug use: no Coffee/Tea/Soda: yes Tea, Diet soda, Coffee Marital Status experience no Living with smokers in household no Problems Problem Type SNOMED Code ICD Code Onset Dates Problem Status W/U Status Risk Notes Problem Hypercholesterolemia (66333978) Hypercholesterolemia NOS (272.4) Active confirmed Problem Depressive disorder (85805517) Depressive disorder NEC (311) Active confirmed Problem Essential hypertension (84082447) Essential (primary) hypertension (I10) Active confirmed Problem Mixed hyperlipidemia (420490779) Mixed hyperlipidemia (E78.2) Active confirmed Problem Trigeminal neuralgia (22463967) Trigeminal neuralgia (G50.0) Active confirmed Problem Polyneuropathy (95845409) Polyneuropathy (G62.9) Active confirmed Vital Signs Blood pressure diastolic 66 mm Hg 10/15/2024 Height 62 in 10/15/2024 Blood pressure systolic 116 mm Hg 10/15/2024 Weight 164.8 lbs 10/15/2024 BMI 30.14 kg/m2 10/15/2024 Encounters Encounter Location Date Provider Diagnosis [facility] [address] [place] [address] 10/15/2024 MANOJ DRISCOLL Impaired fasting glucose R73.01 ; Mixed hyperlipidemia E78.2 ; Essential (primary) hypertension I10 ; Trigeminal neuralgia G50.0 and Polyneuropathy G62.9 [facility] [address] [place] [address], [place] [address] 12/11/2024 MANOJ DRISCOLL Essential (primary) hypertension I10 [address] [place] [address] 12/10/2024 MANOJ DRISCOLL [facility] [address] [place] [address], [place] [address] 10/12/2024 MANOJ DRISCOLL [facility] [address] [place] [address], [place] [address] 09/05/2024 MANOJ DRISCOLL Assessments Encounter Date Diagnosis (ICD Code) Assessment Notes Treatment Notes Treatment Clinical Notes Section Notes 10/15/2024 Impaired fasting glucose (ICD-10 - R73.01) His last hemoglobin A1c was stable at 6.2. He will go for repeat soon. 12/11/2024 Essential (primary) hypertension (ICD-10 - I10) 10/15/2024 Essential (primary) hypertension (ICD-10 - I10) BP is good today. Continue same 2 meds. 10/15/2024 Mixed hyperlipidemia (ICD-10 - E78.2) He remains on simvastatin. He did not do his labs for today but will go soon. No xu;gias 10/15/2024 Trigeminal neuralgia (ICD-10 - G50.0) He goes to [facility], new provider each time. Oxcarbazine makes him imbalanced. No pain in months. Has been intermittent for >10 years. 10/15/2024 Polyneuropathy (ICD-10 - G62.9) He had loss of sensation in his feet, many years. It is better now. No history of significant alcohol use. No obvious etiology. Plan Of Treatment Future Test Test Name Order Date LIPID PROFILE 04/09/2021 LIPID PANEL 05/10/2023 TSH WITH REFLEX TO FT4 (ADULTS ONLY) CBC (COMPLETE BLOOD COUNT) WITH DIFF COMPREHENSIVE METABOLIC PANEL 05/10/2023 HEMOGLOBIN A1C 05/10/2023 VITAMIN B12 05/10/2023 IRON AND TIBC 05/11/2023 URIC ACID 05/11/2023 CBC With Differential/Platelet-[id number] Hgb A1c with eAG Estimation-[id number] 10/11 LP+Non-HDL Cholesterol-584527 10/11/2024 Comp. Metabolic Panel [id number] 2024 Insurance Providers Payer Name Payer Address Payer Phone Subscriber Number Group Number Insured Name Patient Relationship to Insured Coverage Start Date Coverage End Date MEDICARE [employer] [address] [place] [address] [id number] ANIRDUH MOROCHO Self - patient is the insured 1 Medical (General) History Medical History History ICD Code Insomnia trigeminal neuralgia hyperlipidemia pre-diabetes [facility]- Sheryl Morocho () Surgical History Surgery Date(Month/Year) None
--- NOTE | 2025-04-24 07:50 | A.OFFVIS_ITS ---
Intake Vital Signs 04/24/25 07:51 Height 5 ft 3 in Weight 166 lb BMI 29.4 BP 126/68 Blood Pressure Location Rt brachial Position Sitting Respiration 12 Pulse 73 Pulse Source Pulse Oximeter Temp 97.9 F Temp Source Oral Pulse Oximetry (%) 97 Oxygen Delivery Method Room Air Intake Visit Reasons: AWV Dr. Nascimento pt. Intake Note: Medical wellness visit Account Supervisor Required: No Allergies Seasonal Allergies Allergy (Verified 04/24/25 07:51) Runny Nose HPI AWV Dr. Nascimento pt. HPI Details Patient is a 74-year-old male with a significant past medical history of insomnia, neuropathy, hyperlipidemia, hypertension, trigeminal neuralgia, bilateral hand pain with osteoarthritis, and prediabetes presenting today for an annual wellness visit. Normally follows with Dr. Tidwell. CV: Blood pressure today in the office is 126/68. He is currently on chlorthalidone 25 mg daily and olmesartan 40 mg daily. Cholesterol is managed with simvastatin 40 mg. Last LDL 85. States a handful of years ago had a stress test and it was normal. No cp, palpitations, or sob. Neuro: Trigeminal neuralgias currently managed with Dilantin and oxcarbazepine. on gabapentin for pain. Follows with [facility] neuro. Psych: Does have some insomnia question medication side effect. On Benadryl as needed Endo: last A1c was 5.9 Colonoscopy: states 2023- polyps due in 2028 PSA: Up-to-date, fall 2024 Smoker: denies Vaccines: due for flu and shingles PFSH Medical History (Updated 02/25/25 @ 10:06 by Paulino Thompson) Trigeminal neuralgia Neuropathy Hyperlipidemia Hypertension Sinusitis Family History (Reviewed 04/24/25 @ 08:12 by Chrissy Arias [facility]) Father Congestive heart failure Social History (Updated 01/21/25 @ 10:21 by Yesenia Weiss [facility]) Housing: House Alcohol intake: current Patient Tobacco Use Status: Never used Tobacco e-Cigarette/Vaping Use: Never Used Second Hand Smoke Exposure: No service: No Current occupational status: retired Current occupational exposures/hazards: No Cognitive needs: No Hearing needs: No Vision needs: No Questionnaire Medicare Wellness Checkup [age] What gender do you identify with?: male During the past 4 weeks, how much have you been bothered by emotional problems such as feeling anxious, depressed, irritable, sad or downhearted, and blue?: not at all During the past 4 weeks, has your physical & emotional health limited your social activities with family, friends, neighbors, or groups?: not at all During the past 4 weeks, how much bodily pain have you generally had?: mild pain During the past 4 weeks, was someone available to help you if you needed & wanted help?: yes, as much as I wanted During the past 4 weeks, what was the hardest physical activity you could do for at least 2 minutes?: moderate Can you get to places out of walking distance without help? (For eg., can you travel alone on buses, taxis or drive your car?): Yes Can you go shopping for groceries or clothes without someone's help?: Yes Can you prepare your own meals?: Yes Can you do your housework without help?: Yes Because of any health problems, do you need the help of another person with your personal care needs such as eating, bathing, dressing or getting around the house?: No Can you handle your own money without help?: Yes During the past 4 weeks, how would you rate your health in general?: very good During the past 4 weeks how have things been going for you?: very well; could hardly better Are you having difficulties driving your car?: no Do you always fasten your seat belt when you are in a car?: yes, usually During past 4 weeks, have you been bothered by the following: never: Falling or dizzy when standing up, Sexual problems?, Trouble eating well?, Teeth or denture problems?, Problems using the telephone? and Tiredness or fatigue? Have you fallen 2 or more times in the past year?: No Are you afraid of falling?: No Are you a smoker?: no During the past 4 weeks, how many drinks of wine, beer, or other alcoholic beverages did you have?: 1 drink or less per week Do you exercise for about 20 minutes 3 or more times a week?: yes, most of the time Have you been given information to help with the following?: no: Hazards in your house that might hurt you? and no: Keeping track of your medications? How often do you have trouble taking medicines the way you have been told to take them?: I always take medicine as prescribed How confident are you that you can control & manage most of your health problems?: very confident What is your race?: White Mini Mental State Exam (MMSE) Orientation What is the (year) (season) (date) (day) (month)?: year, season, date, day and month Where are we (state) (county) (town or city) (hospital) (floor)?: state, county, town or city, hospital/clinic and floor Registration Name of 3 unrelated objects clearly and slowly, then ask patient to repeat all 3 of them. (1st repeat determines score. Make sure they can repeat all three): object 1, object 2 and object 3 Attention & Calculation (CHOOSE ONE) Spell WORLD backwards (DLROW): 4 letters Recall Ask patient to repeat the 3 items from question #3.: object 1, object 2 and object 3 Language Show patient a wristwatch & ask what it is. Repeat for pencil.: watch Ask the patient to repeat the phrase 'No ifs, ands, or buts' after you.: correct Ask the patient to 'take a piece of paper with their right hand' 'fold paper in half' 'place paper on floor': take paper in right hand, fold paper in half and p lace paper on floor Print the sentence 'CLOSE YOUR EYES' on a piece. If patient actually closes eyes then score.: followed written direction Give patient a blank piece of paper & ask to write a sentence. Score if it contains a noun & verb.: sentence contains subject and verb Score Score: 27 Activity of Daily Living Bathing - sponge bath, tub bath or shower: receives no assistance (gets in/out by self, if usual bathing means Dressing - getting clothes from closets & drawers, including inner/outer garments & fasteners.: gets clothes & gets completely dressed without help Toileting - going to the 'toilet room' for urine/bowel elimination & cleaning self/arranging clothes: goes to toilet room, cleans self, arranges clothes without help Transfer: moves in & out of bed and chair without help (may use support object) Continence: controls urination/bowel movements completely by self Feeding: feeds self without help Total Score: 0 Information obtained from: patient Using telephone: independent Traveling: independent Shopping: independent Preparing meals: independent Housework: independent Taking medicine: independent Managing money: independent Physical Exam Vital Signs: Last Vital Signs Temp 97.9 F 04/24/25 07:51 Pulse 73 04/24/25 07:51 Resp 12 04/24/25 07:51 BP 126/68 04/24/25 07:51 Pulse Ox 97 04/24/25 07:51 Oxygen Delivery Method Room Air 04/24/25 07:51 BMI result Body Mass Index 29.4 Const Orientation/consciousness: patient oriented x3 HEENT Ears: hearing grossly normal bilaterally Neck Thyroid: Thyroid normal Lymphatic: no lymphadenopathy noted Resp Auscultation: clear to auscultation bilaterally Cardio Rate: regular rate Rhythm: regular rhythm Heart sounds: S1 normal heart sound present and S2 normal heart sound present GI Inspection: Yes normal to inspection Palpation (GI): Soft to palpation and Other GI palpation findings present (nontender, no cva tenderness) Auscultation: normoactive bowel sounds Rectal Exam - Male: Yes deferred Skin General skin exam: no rashes or lesions noted Neuro General: patient oriented x3, gait normal and no focal motor deficits Office Procedures EKG Details: EKG is normal sinus rhythm at a rate of 71 beats per minute with nonspecific STT wave abnormalities. No prior study to compare. [id number], Complete Flu Questionnaire Does the patient have a severe egg allergy?: No Does the patient have severe life threatening allergies?: No Does the patient have a fever or illness today?: No Has the patient ever had Guillain-Dumont Syndrome?: No Has the patient ever had any past reaction to a flu shot?: No Immunizations Fluarix [id number] (PF) 45 mcg (15 mcg x 3)/0.5 mL IM syringe Performing Provider: Maryam Melton PA-C Performing Location: [facility] [place] [facility] Administered by: Franky Husain RN on 04/24/25 08:37 Dose Route Admin Location Dispensed Lot Number Expiration Date [facility] Site Auditor 0.5 mL IM Right Deltoid 0.5 mL [id number] 10/22/25 [id number] [employer] VIS Given Date VIS Provided VIS Publication Date 04/24/25 Single Vaccine 24 Eligibility Eligibility Date Funding Source Not [facility] Eligible 04/24/25 Private Results Reviewed Results Reviewed: Laboratory Tests 02/01/25 02/01/25 02/25/25 08:08 08:12 10:24 WBC RBC Hgb Hct Plt Count Sodium Potassium Chloride Carbon Dioxide Anion Gap BUN Creatinine Estimated GFR Fasting Glucose Hgb A1c (Clinic) 5.9 Calcium Total Bilirubin AST ALT Alkaline Phosphatase Total Protein Albumin Triglycerides 77 Cholesterol 154 LDL Cholesterol, Calc 83 HDL Cholesterol 56 PSA Screen 1.98 TSH 1.64 Urine Creatinine 87.01 Urine Microalbumin 7.0 Microalb/Creat Ratio 8.0 03/20/25 09:44 WBC 6.1 RBC 4.77 Hgb 14.4 Hct 42.3 Plt Count 249 Sodium 140 Potassium 3.9 Chloride 107 Carbon Dioxide 27 Anion Gap 10 L BUN 25 H Creatinine 0.77 Estimated GFR > 60 Fasting Glucose 124 H Hgb A1c (Clinic) Calcium 8.9 Total Bilirubin 0.2 AST 26 ALT 31 Alkaline Phosphatase 93 Total Protein 6.6 Albumin 4.3 Triglycerides Cholesterol LDL Cholesterol, Calc HDL Cholesterol PSA Screen TSH Urine Creatinine Urine Microalbumin Microalb/Creat Ratio Assessment & Plan Assessment & Plan (1) Medicare annual wellness visit, initial: Code(s): Z00.00 - Encounter for general adult medical examination without abnormal findings Plan: Health maintenance reviewed Labs reviewed Flu shot today Patient will go to pharmacy for additional immunizations (2) Pre-diabetes: Code(s): R73.03 - Prediabetes Plan: Advised to reduce carbohydrate and sugar intake (3) Hypertension: Code(s): I10 - Essential (primary) hypertension Plan: WNL. Continue current regimen (4) Hyperlipidemia: Code(s): E78.5 - Hyperlipidemia, unspecified Plan: Stable. Continue current regimen (5) Trigeminal neuralgia: Code(s): G50.0 - Trigeminal neuralgia Plan: Stable. Following with neurology Plan Has follow up arranged with PCP in 2 months Orders: Orders Influenza [id number] Immunization Today Z23 - Encounter for immunization Coding Level of Care Code Medicare First (G0438) Est Pt Level 3 (55989) Diagnoses Medicare annual wellness visit, initial Z00.00 Pre-diabetes R73.03 Hypertension I10 Hyperlipidemia E78.5 Trigeminal neuralgia G50.0 CPT Codes EKG - CPT: 23324-[id number], Complete ([id number]) Advance Care Planning Advance Care Planning discussion: Exists, not on file Forms completed: Health Care Proxy and Living will
[2025-04-24 07:51] VITALS: BP 126/68; PULSE 73; RESP 12; TEMP 36.6; O2SAT 97; BMI 29.4
== END 2025-04-24 08:53 | disposition home or self-care (01) ==
LOC: HO.HMCFM 07:44
PROVIDERS: PCP Family Medicine; Visit Provider Physician Assistant
DX: Z00.00 Encounter for general adult medical examination without abnormal findings (principal); R73.03 Prediabetes; I10 Essential (primary) hypertension; E78.5 Hyperlipidemia, unspecified; G50.0 Trigeminal neuralgia; Z23 Encounter for immunization

== ENCOUNTER → 2025-04-24 07:43 | Outpatient (BNVA) | payer MEDICARE, SELFPAY | PROVIDERS: PCP Family Medicine; Visit Provider Physician Assistant | DX: Z00.00 Encounter for general adult medical examination without abnormal findings (principal); Z23 Encounter for immunization; R73.03 Prediabetes; I10 Essential (primary) hypertension; E78.5 Hyperlipidemia, unspecified; G50.0 Trigeminal neuralgia | CPT/HCPCS: 90471; 90656; G0404 ==